=== PATIENT | female | born 1990 | race Caucasian/White ===

== ENCOUNTER 2022-03-14 11:21 | Outpatient (CLI) | payer SELFPAY | END 2022-03-14 11:22 | disposition home or self-care (01) | LOC: LBO 11:23 | PROVIDERS: Visit Provider Obstetrics & Gynecology | DX: O20.0 Threatened abortion (principal); Z67.91 Unspecified blood type, Rh negative | CPT/HCPCS: 36415; 86850; 86900; 86901 ==

== ENCOUNTER 2022-04-22 01:53 | Outpatient (CLI) | payer MEDICAID, SELFPAY ==
[2022-04-22 12:44] LABS: Panorama Kit Sent via Fed Ex
[2022-04-22 12:50] LABS: Abs Immature Grans 0.04 10^3/uL (0.0-0.06); Absolute Basophil Count 0.06 10^3/uL (0.0-0.2); Absolute Eosinophil Count 0.09 10^3/uL (0.0-0.7); Absolute Monocyte Count 0.59 10^3/uL (0.1-0.8); Basophils % 0.5; Eosinophils % 0.7; HCT 36.5 % (36.0-46.0); HGB 12.9 g/dL (11.2-15.7); Immature Grans % 0.3; Lymphocytes % 18.2; MCH 34.2 pg (27.0-33.0); MCHC 35.3 % (32.0-36.0); MCV 97 fL (80-95); Monocytes % 4.7; Neutrophils % 75.6; Platelet Count 215 10^3/uL (130-400); RBC 3.77 10^6/uL (3.93-5.22); RDW 11.2 % (11.7-14.6); WBC 12.55 10^3/uL (4.4-10.8)
[2022-04-22 12:51] LABS: Absolute Lymphocyte Count 2.28 10^3/uL (1.2-3.4); Absolute Neutrophil Count 9.49 10^3/uL (1.2-6.7)
[2022-04-25 09:46] LABS: Hepatitis C Ab w Rflx HCV PCR Negative (Negative)
[2022-04-25 09:53] LABS: HIV-1/2 Ag & Ab Screen Negative (Negative)
[2022-04-25 10:02] LABS: Hepatitis B Surface Ag Negative (Negative)
[2022-04-25 10:03] LABS: Varicella IgG Antibody Positive (See Note)
[2022-04-25 10:07] LABS: Rubella IgG Ab (UVM) Positive (See Note)
[2022-04-26 23:16] LABS: Syphilis IgG w/Reflex Nonreactive (Nonreactive)
[2022-05-06 17:45] LABS: Result Summary NEGATIVE; Specimen WB Whole Blood
== END 2022-04-22 01:54 | disposition home or self-care (01) ==
LOC: LBO 01:53
PROVIDERS: Visit Provider Advanced Practice Midwife
DX: Z34.91 Encounter for supervision of normal pregnancy, unspecified, first trimester (principal); Z3A.11 11 weeks gestation of pregnancy; Z36.89 Encounter for other specified antenatal screening
CPT/HCPCS: 36415; 81220; 81222; 86787; 86803; 86850; 86900; 86901; 87340; 87389; 85025; 86762; 86780

== ENCOUNTER 2022-05-20 13:50 | Outpatient (REF) | payer MEDICAID, SELFPAY ==
[2022-05-20 15:59] LABS: *AMPHETAMINES SCREEN URINE Negative (Negative); *BARBITURATES SCREEN URINE Negative (Negative); *BENZODIAZEPINES SCREEN URINE Negative (Negative); Cannabinoids THC Negative (Negative); Cocaine Screen,Urine Negative (Negative); METHADONE URINE SCREEN Negative (Negative); OPIATES URINE SCREEN Negative (Negative)
[2022-05-20 16:01] LABS: Tricyclic Antidepressants Negative (Negative)
[2022-05-21 14:15] LABS: Chlamydia Result Negative (Negative); GC Result Negative (Negative)
[2022-05-26 14:38] LABS: Buprenorphine Negative ng/mL (Cutoff: 5.0); Norbuprenorphine Negative ng/mL (Cutoff: 2.5)
== END 2022-05-20 13:51 | disposition home or self-care (01) ==
LOC: LBN 13:50
PROVIDERS: Advanced Practice Midwife; Visit Provider Advanced Practice Midwife
DX: Z34.91 Encounter for supervision of normal pregnancy, unspecified, first trimester (principal); Z11.3 Encounter for screening for infections with a predominantly sexual mode of transmission; Z3A.15 15 weeks gestation of pregnancy
CPT/HCPCS: 80307; 80348; 87491; 87591; 87086

== ENCOUNTER 2022-06-10 00:35 | Outpatient (CLI) | payer MEDICAID, SELFPAY ==
--- NOTE | 2022-06-10 07:45 | DI.US_ITS ---
Exam(s) US OB 2-3 TRIMESTER EXAM: US OB 2-3 TRIMESTERi CLINICAL HISTORY: 18-19 wk anatomy survey,z34.90. TECHNIQUE: Transabdominal obstetrical ultrasound was performed. COMPARISON: No exams were available for comparison FINDINGS: There is a single viable intrauterine gestation with cardiac activity identified-134 bpm. Amniotic fluid: There is a normal amount of amniotic fluid. Placental location: The placenta is anterior grade 1,with no evidence of placenta previa. ANATOMY: A 3 vessel umbilical cord is seen. A four-chamber cardiac view was obtained. Right and left ventricular outflow tracts were imaged. There are no obvious abnormalities of the spinal column evident. There is no obvious abnormal ity of the anterior abdominal wall. stomach and urinary bladder are identified and there is no evidence of hydronephrosis. No abnormalities of the upper lip region are identified. No evidence of choroid plexus cysts i n the brain. Dating parameters place this at approximately 18 weeks and 4 days gestational age. BPD measures 18 weeks and 0 days HC measures 18 weeks and 3 days AC measures 18 weeks and 3 days FL measures 19 weeks and 1 day Estimated weight is 254 gm-0 pounds, 9 ounces Fetus is at the 64th percentile on the Hadlock scale. IMPRESSION:: Single viable intrauterine gestation which is approximately 18 weeks and 4 days gestati onal age, implying an TRAN of November 07, 2022. There are no obvious anomalies evident on today's study. The placenta is anterior with no evidence of placenta previa. There is a normal amount of amniotic fluid. DATA REPOSITORY:
== END 2022-06-10 00:55 ==
LOC: DI 00:35
PROVIDERS: Visit Provider Advanced Practice Midwife
DX: Z34.90 Encounter for supervision of normal pregnancy, unspecified, unspecified trimester (principal)
CPT/HCPCS: 76805

== ENCOUNTER 2022-08-19 01:35 | Outpatient (CLI) | payer MEDICAID, SELFPAY ==
[2022-08-19 08:46] LABS: HCT 33.3 % (36.0-46.0); HGB 11.4 g/dL (11.2-15.7); MCH 35.1 pg (27.0-33.0); MCHC 34.2 % (32.0-36.0); MCV 103 fL (80-95); MPV 10.2 fL (8.0-11.0); Platelet Count 248 10^3/uL (130-400); RBC 3.25 10^6/uL (3.93-5.22); RDW 12.5 % (11.7-14.6); RDW-SD 47.3 fL; WBC 10.65 10^3/uL (4.4-10.8)
[2022-08-19 09:00] LABS: Glucose,1 Hr (Glucola) 134 mg/dL (80-140)
== END 2022-08-19 01:36 | disposition home or self-care (01) ==
LOC: LBO 01:35
PROVIDERS: Visit Provider Advanced Practice Midwife
DX: Z34.93 Encounter for supervision of normal pregnancy, unspecified, third trimester (principal)
CPT/HCPCS: 36415; 82950; 85027

== ENCOUNTER 2022-08-19 07:37 | Outpatient (CLI) | payer MEDICAID, SELFPAY ==
--- NOTE | 2022-08-19 06:15 | DI.US_ITS ---
Exam(s) US OB JA WEIGHT EXAM: US OB JA WEIGHT CLINICAL HISTORY: growth and fluid volume,smoker,z34.90. TECHNIQUE: Transabdominal obstetrical ultrasound performed. COMPARISON: US US OB 2-3 TRIMESTER from 06/10/2022 FINDINGS:: Number of fetuses: One. position: Vertex. Placental location: Anterior no evidence of previa. BIOMETRIC DATA: BPD: 69mm = 28+ 0 weeks HC: 257mm = 28+ weeks AC: 250mm = 29+ 0 weeks FL: 54 mm = 28+ 5 weeks EFW: 1280 Gms = 50% Composite Age: 28+ 3 weeks EDC: 08 November 2022 Heart Rate: 130BPM Amniotic fluid index: 13 cm. Amount of fluid is visually within normal limits. IMPRESSION: size and weight are within the expected range. DATA REPOSITORY:
[2022-11-08 23:53] VITALS: BP 120/83; PULSE 112; RESP 18; TEMP 36.8
[2022-11-09] VITALS (55 sets, daily range): BP systolic 85–171; BP diastolic 48–94; PULSE 88–129; O2SAT 96–100
== END 2022-11-09 07:38 | disposition home or self-care (01) ==
LOC: DI 11-09 07:37
PROVIDERS: Visit Provider Advanced Practice Midwife
DX: Z34.93 Encounter for supervision of normal pregnancy, unspecified, third trimester
CPT/HCPCS: 76816

== ENCOUNTER 2022-09-05 12:41 | Outpatient (REF) | payer MEDICAID, SELFPAY ==
[2022-09-05 14:16] LABS: *AMPHETAMINES SCREEN URINE Negative (Negative); *BARBITURATES SCREEN URINE Negative (Negative); *BENZODIAZEPINES SCREEN URINE Negative (Negative); Cannabinoids THC Negative (Negative); Cocaine Screen,Urine Negative (Negative); METHADONE URINE SCREEN Negative (Negative); OPIATES URINE SCREEN Negative (Negative)
[2022-09-05 14:20] LABS: Tricyclic Antidepressants Negative (Negative)
== END 2022-09-05 12:42 | disposition home or self-care (01) ==
LOC: LBN 12:41
PROVIDERS: Visit Provider Advanced Practice Midwife
DX: F12.90 Cannabis use, unspecified, uncomplicated (principal); O99.320 Drug use complicating pregnancy, unspecified trimester; Z3A.00 Weeks of gestation of pregnancy not specified
CPT/HCPCS: 80307

== ENCOUNTER 2022-09-09 12:48 | Outpatient (CLI) | payer MEDICAID, SELFPAY ==
[2022-09-09 12:59] VITALS: BP 119/75; PULSE 111; TEMP 36.6
--- NOTE | 2022-09-09 13:48 | W.OBNST ---
Date of service: 09/09/22 Time of Service: 13:48 NST Evaluation Reason for NST Reasons for Nonstress Test: DECREASED MOVEMENT Gestational Age Gestational Age in Weeks and Days: 31 Weeks and 3Days Test and Monitor Explained Test/Monitor Explained: Test Explained, Monitor Explained and Patient Verbalized Understanding Vital Signs Blood Pressure: 119/75 Pulse: 111 Temperature: 97.9 F Urine Results Urine Protein: Negative Urine Ketones: Negative Urine Glucose: Negative Urine Blood: Negative NST Information Date on Monitor: 09/09/22 Time on Monitor: 13:01 Date off Monitor: 09/09/22 Time off Monitor: 13:31 Total Time on Monitor: 30 NST Interventions: PO Hydration NST Evaluation Patient States Movement: Decreased FHR Baseline: 120 Variability: Moderate 6-25 bpm Accelerations: 15x15 Decelerations: None NST Results: Reactive Note Ultrasound Done: N/A. NST Note Note: Pt came in from work, needed to eat, was dehydrated. At discharge was feeling better, appreciated FM, ate sandwich and had juice. NST Reviewed and Verified by: Pretty Rmoo
[2022-09-09 13:49] VITALS: BP 119/75; PULSE 111; TEMP 36.6
== END 2022-09-09 13:52 | disposition home or self-care (01) ==
LOC: BCD 12:52 → OBS 12:53
PROVIDERS: Visit Provider Advanced Practice Midwife
DX: O36.8131 Decreased fetal movements, third trimester, fetus 1 (principal); Z3A.31 31 weeks gestation of pregnancy
CPT/HCPCS: 59025

== ENCOUNTER 2022-09-21 10:37 | Outpatient (CLI) | payer MEDICAID, SELFPAY ==
[2022-09-21] VITALS (10 sets, daily range): BP systolic 114; BP diastolic 79; PULSE 88–101; TEMP 36.4; O2SAT 100
--- NOTE | 2022-09-21 13:42 | W.OBNST ---
Date of service: 09/21/22 Time of Service: 13:42 NST Evaluation Reason for NST Reasons for Nonstress Test: LABOR Gestational Age Gestational Age in Weeks and Days: 33 Weeks and 1Days Test and Monitor Explained Test/Monitor Explained: Test Explained, Monitor Explained and Patient Verbalized Understanding Vital Signs Blood Pressure: 114/79 Pulse: 101 Temperature: 97.5 F Urine Results Urine Protein: Negative Urine Ketones: Positive Urine Glucose: Negative Urine Blood: Negative NST Information Date on Monitor: 09/21/22 Time on Monitor: 10:45 Date off Monitor: 09/21/22 Time off Monitor: 11:50 Total Time on Monitor: 65 NST Interventions: PO Hydration and Notify Provider Contraction Frequency: Q4-6 NST Evaluation Patient States Movement: Present FHR Baseline: 155 Variability: Moderate 6-25 bpm Accelerations: 15x15 and Prolonged Decelerations: None NST Results: Reactive Note Ultrasound Done: N/A. NST Note Note: Michelle came in for routine OB visit today and she reported uterine contractions. She had not had anything to eat prior to her visit and she reports that she has been very busy at work and with home chores prior to her visit. Uterine irritability noted which was mild strength. The contractions decreased in frequency after drinking 5 glasses of water and eating lunch. Urine was neg but did show a trace of ketones. White, frothy discharge was noted upon speculum exam and vaginal pathogen screen and fibronectin and GBS sent. She reports a history of BV. Cervix is soft and closed and vertex is low. I reviewed signs of labor. She will start metronidazole PO pending vaginal pathogen screen results. Rest and pelvic rest recommended and adequate fluid and food intake. NST Reviewed and Verified by: Aspen Amezcua
[2022-09-21 14:05] LABS: Fetal Fibronectin Negative (Negative)
== END 2022-09-21 12:50 | disposition home or self-care (01) ==
LOC: BCD 10:49 → OBS 10:57
PROVIDERS: Visit Provider Advanced Practice Midwife
DX: O60.03 Preterm labor without delivery, third trimester (principal); Z3A.33 33 weeks gestation of pregnancy
CPT/HCPCS: 59025; 82731; 87081; 87480; 87510; 87660

== ENCOUNTER 2022-10-03 11:28 | Outpatient (CLI) | payer MEDICAID, SELFPAY ==
[2022-10-03 11:34] VITALS: BP 112/76; PULSE 109; TEMP 36.7
[2022-10-03 11:36] VITALS: BP 112/76; PULSE 109
--- NOTE | 2022-10-03 12:11 | W.OBNST ---
Date of service: 10/03/22 Time of Service: 12:11 NST Evaluation Reason for NST Reasons for Nonstress Test: OTHER, SEE COMMENT Reason for NST Other: increased fhr in office Gestational Age Gestational Age in Weeks and Days: 34 Weeks and 6Days Test and Monitor Explained Test/Monitor Explained: Test Explained, Monitor Explained and Patient Verbalized Understanding Vital Signs Blood Pressure: 112/76 Pulse: 109 Temperature: 98.1 F Urine Results Urine Protein: Negative Urine Ketones: Negative Urine Glucose: Negative Urine Blood: Negative NST Information Date on Monitor: 10/03/22 Time on Monitor: 11:15 Date off Monitor: 10/03/22 Time off Monitor: 12:06 Total Time on Monitor: 51 NST Interventions: PO Hydration NST Evaluation Patient States Movement: Present FHR Baseline: 160 Variability: Moderate 6-25 bpm Accelerations: 15x15 Decelerations: None NST Results: Reactive Note Ultrasound Done: N/A. NST Note Note: NST is reactive and reassuring. FHR baseline decreased to 150-160 once PO hydration and rest occurred. Will keep next office appointment as scheduled. MARISA NST Reviewed and Verified by: Aspen [place]
[2022-10-03 12:12] VITALS: BP 112/76; PULSE 109; TEMP 36.7
== END 2022-10-03 12:09 | disposition home or self-care (01) ==
LOC: BCD 11:29 → OBS 11:32
PROVIDERS: Visit Provider Advanced Practice Midwife
DX: O36.8331 Maternal care for abnormalities of the fetal heart rate or rhythm, third trimester, fetus 1 (principal); Z3A.34 34 weeks gestation of pregnancy
CPT/HCPCS: 59025

== ENCOUNTER 2022-10-13 11:46 | Outpatient (REF) | payer MEDICAID, SELFPAY ==
[2022-10-13 18:20] LABS: *AMPHETAMINES SCREEN URINE Negative (Negative); *BARBITURATES SCREEN URINE Negative (Negative); *BENZODIAZEPINES SCREEN URINE Negative (Negative); Cannabinoids THC Negative (Negative); Cocaine Screen,Urine Negative (Negative); METHADONE URINE SCREEN Negative (Negative); OPIATES URINE SCREEN Negative (Negative)
[2022-10-13 18:22] LABS: Tricyclic Antidepressants Negative (Negative)
[2022-10-22 11:29] LABS: Buprenorphine Negative ng/mL (Cutoff: 5.0)
== END 2022-10-13 11:47 | disposition home or self-care (01) ==
LOC: LBN 11:46
PROVIDERS: Visit Provider Advanced Practice Midwife
DX: Z34.93 Encounter for supervision of normal pregnancy, unspecified, third trimester (principal); Z36.85 Encounter for antenatal screening for Streptococcus B; Z3A.36 36 weeks gestation of pregnancy
CPT/HCPCS: 80307; 80348; 87081

== ENCOUNTER 2022-10-26 10:44 | Outpatient (REF) | payer MEDICAID, SELFPAY | END 2022-10-26 10:45 | disposition home or self-care (01) | LOC: LBN 10:44 | PROVIDERS: Visit Provider Advanced Practice Midwife | DX: O26.893 Other specified pregnancy related conditions, third trimester (principal); N89.8 Other specified noninflammatory disorders of vagina; Z3A.38 38 weeks gestation of pregnancy | CPT/HCPCS: 87480; 87510; 87660 ==

== ENCOUNTER 2022-11-09 02:36 | Inpatient (IN) | payer MEDICAID, SELFPAY ==
[2022-11-08 23:53] VITALS: BP 120/83; PULSE 112; RESP 18; TEMP 36.8
[2022-11-09] VITALS (79 sets, daily range): BP systolic 85–171; BP diastolic 48–101; PULSE 88–129; RESP 18; TEMP 36.5–36.9; O2SAT 96–100; BMI 23.9
--- NOTE | 2022-11-09 00:28 | HPE_ITS ---
Date of service: 11/09/22 Time of Service: 00:28 Assessment and Plan Assessment and plan (1) Prolonged latent phase of labor: Status: Acute Assessment and plan: 1. Observation, support comfort measures for labor 2. Reassess for cervical change and admit as indicated 3. Will await active labor for IV access and or epidural, using ball and shower as desired. MARISA OB-HPI Labor/Delivery History of Present Illness Reason for Visit: R/O LABOR Chief Complaint: Uterine Contractions. TRAN Calculator Estimated Delivery Date Method Current WG Current Estimate 11/08/22 Ultrasound #1 40w 1d Other Estimates 11/04/22 LMP (Certain) 40w 5d Comments: Michelle presents with contractions that have been happening most of the day but in the past hour have become closer and stronger. She is working well with contractions and when in active labor may want epidural. Denies LOF. Has had some bloody mucous. Baby has been active. MARISA History of Present Expected Delivery Route/Plan - DIDIER FOB/nida Pan (first child) Diane Florentino Desires epidural GBS negative Specific Issues/Plan 1. Has stopped smoking, uses nicotine pouches 4 mg 2-3x/day. 2. Likes caffeine but limits to 200 mg daily (Dr. Quarles & Barbara Velez) 3. Quit using MJ (for nausea) since 10 wks, expect THC+, repeat at 28 wks=negative 4. Hx anxiety w/caffeine & nicotine abuse. associated HTN last yr, stopped propanolol prior to 4a. Advised to start low dose ASA (nullip & hx HTN), pt declines 5. Pt declines [facility] allergy referral 6. Panorama results WNL, CF carrier screen negative 7. anatomy survey shows left ventricular IEF, considered benign with nml cfDNA results. 8. EFW/JA @ 28 wks due to substance use, EFW in 50th%, JA=13 9. Contractions at 33 wks - BV+, Rx'ed metronidazole Assessment: History Reviewed & Current Review of Systems All systems reviewed & are unremarkable except as noted in HPI and below PFSH All Active Problems (Updated 11/09/22 @ 00:35 by Aspen Lake CNM) Prolonged latent phase of labor (Acute) Marijuana use (Acute) Caffeine dependence (Acute) Nicotine dependence (Acute) Anxiety (Chronic) (Acute) Medical History Threatened miscarriage Social History Smoking/Tobacco Use Status: Former Tobacco Use Smoking risk assessment performed?: Yes History History 2 Para 0 Hx # Term Pregnancies 0 Multiple births 0 Hx # Pregnancies 0 Ectopic pregnancies 0 AB induced 1 Hx Number of Living Children 0 AB spontaneous 0 Meds Allergies and Home Medications Allergies Allergy/AdvReac Type Severity Reaction Status Date / Time Sulfa (Sulfonamide Allergy Skin Rash Verified 11/09/22 00:34 Antibiotics) Penicillins AdvReac Mild Skin Rash Verified 11/09/22 00:34 lavender soap AdvReac Intermediate Hives Uncoded 11/09/22 00:34 Home Medications Medication Instructions Recorded Confirmed Type prenat.vits,chris,[id number] 1 tab PO DAILY 03/14/22 11/08/22 History fluticasone propionate 50 1 spray intranasal DAILY 05/20/22 11/08/22 History mcg/actuation nasal spray,suspension (Flonase Allergy Relief) acetaminophen 500 mg capsule 500 mg PO Q6H PRN 06/10/22 11/08/22 History albuterol sulfate 90 mcg/actuation 2 puff inhalation QID PRN 06/10/22 11/08/22 History aerosol inhaler calcium carbonate 200 mg calcium 200 mg PO BID PRN 10/20/22 11/08/22 History (500 mg) chewable tablet (Tums) Exam Constitutional Constitutional: mild distress (due to uterine contractions) Detailed Labor and Delivery Exam Dilation: 2 Effacement (%): 90 station: -2 Cervix position: posterior Consistency: soft Corona Score: Cervical Points Exam 0 1 2 3 Dilation Closed 1-2cm 3-4 cm 5-6cm Effacement 0-30% 40-50% 60-70% 80% Consistency Firm Medium Soft Station -3 -2 -1,0 +1,+2 Position Posterior Mid Anterior CORONA Score(Cervical Ripeness Score): 7 Amniotic Membrane Status: Intact Contraction Frequency(min): 2-4 Contraction Duration(sec): 50-90 Contraction Intensity: Moderate Fetus A Heart Rate Baseline: 125 Monitor Accelerations: 15 X 15 Variability: Moderate (6-25 BPM) Est. Weight: 6 lb 8 oz HEENT Exam HEENT Exam: Normal Neck Exam Neck Exam: Normal (visual exam) Chest/Brest/Axilla Exam Chest Exam: Normal Respiratory Exam Respiratory Exam: Normal Cardiovascular Exam Cardiovascular Exam: Normal Abdominal Exam Abdominal Exam: Normal (gravid uterus, size slightly less than dates) Rectal Exam Rectal Exam: Not Done Exam Exam: Normal (no blood noted with exam) Extremities Exam Extremities Exam: Normal Back/Spine/Pelvis Exam Back Exam: Not Done Pelvis Adequate: Yes Skin Exam Skin Exam: Normal Neurological Exam Neurological Exam: Normal Psychiatric Exam Psychiatric Exam: Normal Results Results Group Beta Strep: Negative Blood Type: O+ Rubella Status: Immune Varicella Immunity: Immune Lab Results: Hep B and C neg, HIV neg, Syphilis neg, CF neg, cfDNA low risk female gender Risk Assessment Risk for Shoulder Dystocia Historical/Initial OB: NEGATIVE FOR: Pelvic Abnormality, Pre- BMI>30, Previous Shoulder Dystocia or Previous Macrosomia 40 Weeks: NEGATIVE FOR: EFW> 4500 gms, Maternal Weight Gain >40lb or Post Dates Delivery Plan @ 40 wks: NVD planned Risk for Pre-Eclampsia Date Initiated/Initials: 04/22/22, discussed start @ 12 wks for low-mod risk level, pt declines. J Yes, if one or more: NEGATIVE FOR: Hx Pre-E/Gest HTN, Chronic HTN, Multiple Gestation, Pre-gestational DM, Renal Disease, Systemic Lupus or APA Syndrome Yes, if 2 or more: POSITIVE FOR: Nulliparity; NEGATIVE FOR: Age>= 35 yrs, >10yr btwn pregnancies, BMI>30, ethinicty, Mother/Sister w/ Pre-E or Previous IUGR Risk for Post- Hemorrhage Initial: NEGATIVE FOR: Multiple Gestation, Previous PPH, Known Clotting Deficiency, Grand Multiparity or Anticoagulation 40 Weeks: NEGATIVE FOR: Anemia, hgb<10, Low platelets (thrombocytopenia), Gestation HTN or Pre-E, Polyhydraminios or EFW>4500gms Counseled re: Active Management: Yes Date/Initials: 11/09/22 KH Risks Reviewed Risks Reviewed Upon Admission: Yes
--- NOTE | 2022-11-09 02:02 | W.PM.OBNL1 ---
Date of service: 11/09/22 Time of Service: 02:02 Pelvic Exam Dilation: 3 Effacement (%): 90 station: -2 Cervix Position: posterior Consistency: soft Contractions Monitor Mode: External Contraction Frequency(min): irregular Contraction Duration(sec): irregular Intensity: Mild Fetus A Monitor: External (US) Heart Rate Baseline: 120 Variability: Moderate (6-25 BPM) Categories: Category I Accelerations: 15 X 15 Decelerations: None Amniotic Membrane Status: Intact Assessment and Plan Assessment and plan (1) Prolonged latent phase of labor: Status: Acute Assessment and plan: 1. therapeutic rest at hospital vs behavioral methods of management of prodromal labor either as observation patient or with discharge to home reviewed. 2. Michelle will consider options and let us know what sounds best to her at this point in her prodromal labor. 3. FHR tracing is reactive and reassuring, [place] Objective Temp 98.2 F 11/09/22 00:28 Subjective Interval history since last seen: Michelle has had a period of less frequent and less intense contractions. VE done with minimal progress /-2 posterior and soft. I reviewed options for rest such as morphine and phenergan or Nubain, behavioral methods of relaxation and shower, tub etc. or discharge to home to return when contractions are every 4 minutes or less lasting 1 minute with increased intensity for 1 hour or more. She and her partner, Kevon, will consider these options and then let us know their choice. I reviewed that induction or augmentation of labor is not possible at this time due to unit census and due to her healthy, normal . MARISA
--- NOTE | 2022-11-09 02:35 | W.OBNST ---
Date of service: 11/09/22 Time of Service: 00:15 NST Evaluation Reason for NST Reasons for Nonstress Test: OTHER, SEE COMMENT Reason for NST Other: Rule out labor Gestational Age Gestational Age in Weeks and Days: 40 Weeks and 1Days Test and Monitor Explained Test/Monitor Explained: Test Explained Urine Results Urine Protein: Negative Urine Ketones: Negative Urine Glucose: Negative Urine Blood: Negative NST Information Date on Monitor: 11/08/22 Time on Monitor: 23:45 Date off Monitor: 11/09/22 Time off Monitor: 00:15 Total Time on Monitor: 30 NST Interventions: None NST Evaluation Patient States Movement: Present FHR Baseline: 145 Variability: Moderate 6-25 bpm Accelerations: 15x15 Decelerations: None Note Ultrasound Done: N/A. NST Note Note: NST is reactive and reassuring. Patient is in prodromal labor. will place on observation and reassess prn. MARISA NST Reviewed and Verified by: Aspen [place]
--- NOTE | 2022-11-09 07:01 | PGE_ITS ---
Date of service: 11/09/22 Time of Service: 07:02 Pelvic Exam Dilation: 5 Effacement (%): 100 station: -1 Position: SURJIT Cervix Position: mid Consistency: soft Contractions Monitor Mode: Palpation Contraction Frequency(min): 2-4 Contraction Duration(sec): 60 Intensity: Moderate/Strong Fetus A Assessment Note: currently off monitor, will be placed on monitor during admission. FHT's have been WNL. MARISA Assessment and Plan Assessment and plan (1) Normal labor: Status: Acute Assessment and plan: 1. Update admission to inpatient. H&P is current 2. CBC and type and screen 3. IV access and epidural when able to obtain 4 will give report to Pretty Romo CNM at 0800 [facility] MARISA Objective Temp Pulse Resp BP 98.2 F 110 H 18 114/68 11/09/22 05:47 11/09/22 05:47 11/09/22 05:47 11/09/22 05:47 Vital Signs Reviewed: Yes Subjective Interval history since last seen: Admitted from OB Observation at this time as patient is 5cm/100%/-1 with bulging membranes and + show. Working well with contractions using nitrous but would p refer epidural once admission is complete and IV is in place. MARISA
[2022-11-09 07:35] LABS: HCT 39.5 % (36.0-46.0); HGB 13.5 g/dL (11.2-15.7); MCH 33.7 pg (27.0-33.0); MCHC 34.2 % (32.0-36.0); MCV 99 fL (80-95); MPV 10.8 fL (8.0-11.0); Platelet Count 247 10^3/uL (130-400); RBC 4.01 10^6/uL (3.93-5.22); RDW 12.8 % (11.7-14.6); RDW-SD 45.7 fL; WBC 18.02 10^3/uL (4.4-10.8)
--- NOTE | 2022-11-09 07:42 | W.ANESPRE ---
General Info Date of Service Date Performed: 11/09/22 Height: 5 ft 3 in Weight: 61.235 kg Body Mass Index (BMI): 23.9 Meds Allergies and Home Medications Allergies Allergy/AdvReac Type Severity Reaction Status Date / Time Sulfa (Sulfonamide Allergy Skin Rash Verified 11/09/22 00:34 Antibiotics) Penicillins AdvReac Mild Skin Rash Verified 11/09/22 00:34 lavender soap AdvReac Intermediate Hives Uncoded 11/09/22 00:34 Home Medication Medication Instructions Recorded prenat.vits,chris,[id number] 1 tab PO DAILY 03/14/22 fluticasone propionate 50 1 spray intranasal DAILY 05/20/22 mcg/actuation nasal spray,suspension (Flonase Allergy Relief) acetaminophen 500 mg capsule 500 mg PO Q6H PRN 06/10/22 albuterol sulfate 90 mcg/actuation 2 puff inhalation QID PRN 06/10/22 aerosol inhaler calcium carbonate 200 mg calcium 200 mg PO BID PRN 10/20/22 (500 mg) chewable tablet (Tums) Current Visit Medications: Current Medications Generic Name Dose Route Start Last Admin Trade Name Freq PRN Reason Stop Dose Admin Acetaminophen 500 mg 11/09/22 07:07 Acetaminophen 500 Mg Tab PO Q6H PRN PRN Sodium Chloride 500 mls @ 0 mls/hr 11/09/22 06:59 Saline 500ml Bag IV PRN PRN As Directed IV Miscellaneous Supplies 1 each 11/09/22 07:00 Iv Access IV DIRECTED BRANDON Sodium Chloride 0 ml 11/09/22 06:59 Normal Saline Flush 10 Ml Syr IVP PRN PRN PFSH Active Problems Active Problems: Problem Status Onset Code Normal labor O80, Z37.9 Marijuana use F12.90 Caffeine dependence F15.20 Nicotine dependence F17.200 Anxiety F41.9 Z34.90 Medical History Medical History (Updated 11/09/22 @ 07:04 by Aspen Lake CNM) Prolonged latent phase of labor Threatened miscarriage Tobacco Smoking/Tobacco Use Status: Former Tobacco Use Prental History History 2 Para 0 Hx # Term Pregnancies 0 Multiple births 0 Hx # Pregnancies 0 Ectopic pregnancies 0 AB induced 1 Hx Number of Living Children 0 AB spontaneous 0 Vital Signs and Lab Results Vital Signs Most Recent Vital Signs in EMR: Most Recent Vital Signs Temp Pulse Resp BP 36.8 C 110 H 18 114/68 11/09/22 05:47 11/09/22 05:47 11/09/22 05:47 11/09/22 05:47 Lab Results 11/09/22 07:25 Blood Type / Crossmatch: No Data to Display Complete Blood Count: White Blood Count 18.02 10^3/uL (4.4-10.8) H 11/09/22 07:25 Red Blood Count 4.01 10^6/uL (3.93-5.22) 11/09/22 07:25 Hemoglobin 13.5 g/dL (11.2-15.7) 11/09/22 07:25 Hematocrit 39.5 % (36.0-46.0) 11/09/22 07:25 Platelet Count 247 10^3/uL (130-400) 11/09/22 07:25 Complete Metabolic Panel: No Data to Display Liver Function Panel: No Data to Display Coagulation Panel: No Data to Display Cardiac Panel: No Data to Display Arterial Blood Gas: No Data to Display Venous Blood Gas: No Data to Display Pancreas Panel: No Data to Display Thyroid Panel: No Data to Display Infectious Disease: No Data to Display Blood Cultures: No Data to Display Toxicology Panel: Urine Amphetamines Screen Negative (Negative) 10/13/22 11:20 Urine Benzodiazepines Screen Negative (Negative) 10/13/22 11:20 Urine Barbiturates Screen Negative (Negative) 10/13/22 11:20 Urine Cocaine Screen Negative (Negative) 10/13/22 11:20 Urine Methadone Screen Negative (Negative) 10/13/22 11:20 Urine Opiates Screen Negative (Negative) 10/13/22 11:20 Ur Tricyclic Antidepressants Screen Negative (Negative) 10/13/22 11:20 Ur Tetrahydrocannabinol (THC) Scrn Negative (Negative) 10/13/22 11:20 Panel: No Data to Display Anesthesia Assessment and Plan Anesthesia History Personal History: No History of Anesthesia Complications Family History: No Family History of Anesthesia Complications Exercise Tolerance Exercise Tolerance: Metabolic Equivalents>4 Pertinent Negatives Pertinent Negatives: No Major Cardiovascular Symptoms or Complaints and No Major Pulmonary Symptoms or Complaints Cardiac & Pulmonary Exam Cardiac Exam: Normal S1/S2 Heart Sounds Pulmonary Exam: Clear Bilateral Breath Sounds Implantable Cardiac Device Does patient have a Pacemaker or an ICD?: No Airway Exam Known Difficult Airway: No Mallampati Class: 2 Mouth Opening: Normal (> 3cm) Thyromental Distance: Greater than 3 cm Neck Range of Motion: Full ROM Neck Circumference: Normal Teeth Condition: Normal Dentition ASA Classification ASA Score: ASA 2 Emergency Case?: No NPO Status NPO Status: Full Stomach Status Status: Confirmed Anesthesia Plan Resuscitation Status: Full Code Anesthesia Technique: Epidural Anesthesia Airway Planned: Natural Airway Pain Management: Epidural Monitors Used: Standard Monitors Preoperative Comments:: Significant GERD, desires epidural, discussed risks, benefits, and alternatives
[2022-11-09] MEDS: Lactated Ringers 500 ML IV (08:54)
[2022-11-09] MEDS: FentaNYL/ROPIvacaine 2 mcg/ml and 0.1% 200 ML CADD Cassette EP (08:54)
--- NOTE | 2022-11-09 10:39 | ANES.NEUR_ITS ---
Epidural/Spinal Catheter Date Performed: 11/09/22 Procedure Start: 08:16 Procedure Stop: 09:35 Requesting Provider: [place] Procedure Location: Obstetrics Reason Performed: Labor Epidural Standard Monitors Applied: Blood Pressure, SpO2 and See EMR for corresponding vital signs Patient Position: Sitting Sedation Given (Indicate Dose Given): No Sedation given Patient Mental Status: Awake Sterility: Hand Hygiene, Surgical Cap, Surgical Mask, Sterile Gloves, Sterile Drape/Sheet and Chlorhexidine Procedure Location: L2-L3 Interspace Epidural Needle: Tuohy 18 Gauge Needle Length: 3.5 Inch Needle Approach: Midline Epidural Procedure: Skin Prepped, Sterile Drape Placed, 1% Lidocaine to skin and subcutaneous tissue with 25G needle, Tuohy Needle placed, SARAH to Saline Used, Epidural Catheter Placed, Negative Heme, Negative CSF Flow and Tuohy Needle Removed Catheter Placed?: Catheter Placed Test Dose (Indicate Dose Given): 3ml 1.5% Lidocaine with 1:200K Epinephrine Given and Negative Test Dose Loss of Resistance Depth (cm): 7 Catheter depth at skin (cm): 14 (13.5 (unable to put 13.5 in document section)) Dressing: [place] Dressing Placed, Mastisol Used and Dressing reinforced with Tape Epidural Provider Bolus (Indicate Dose Given): Total bolus dose given in 3-5 ml divided doses (3mL) and Total Ropivacaine 0.1% with Fentanyl 2mcg/ml Given from pump. (ml) Dose:: 3mL Additives (Indicate Dose Given ): None Infusion Medication: Medication Infusion Began Medication Infusion: Ropivacaine 0.1% with Fentanyl 2mcg/ml Maintenance Infusion Rate (ml/hour): 10 PCEA Bolus Dose (ml): 5 Block Level: Other Paresthesia: Left Paresthesia Duration: Transient Ultrasound: Not Used Number of Attempts (See previous attempts in note section): 3 Procedure Tolerated: Complications Encountered Procedure Outcome: Unsuccessful Procedure Comment:: Time out completed at bedside with patient's support, Max present for preoperative assessment as well as consent process. First interspace L3/L4 local anesthetic to skin and patient did not tolerate advancement of epidural needle. Plan to move up one interspace and additional lidocaine utilized. Patient had a difficult time with sitting still and required several intermittent breaks during the procedure to wait for a contraction and to re-center herself. Verbal reassurance was provided and ultimately patient tolerated procedure well. During second attempt, left sided persistent paresthesia noted with first catheter placement and decision made to restart procedure with new kit. During third attempt, SARAH to saline at 7cm, negative test dose, 3 mL bolus off pump administered (see reeling machine setup operator)--patient reported right sided ptosis and altered ipsilateral arm sensory function a few minutes after initial bolus dose--the sensory block was at the intermammillary region. Epidural pump immediately stopped, head of bed elevated, O2 provided and requested OB provider present at bedside. Patient had equal smile, bilaterally strong hand public interviewer, and stable vital signs after 5mg of ephedrine IV administered. A second anesthesia provider was requested. Patient's vital signs were reassuring and no shortness of breath reported from patient after vasopressor given. See vital signs per reeling machine setup operator. Patient provided verbal reassurance and discussed potential of a subdural migration of LA or catheter placement. Catheter was withdrawn 2cm and re-taped and pump remained off. Patient was hopeful to use epidural for delivery, but wanted to wait for symptoms to resolve. Patient checked in on again shortly after 10am and ptosis had significantly improved and arm sensation was returning. Decision made, along with patient's consent, to remove epidural catheter and utilize different pain modalities for labor to include an intrathecal, which the patient declined. Patient and partner verbalize understanding and agree to plan. Performed By: Zo Sharma
--- NOTE | 2022-11-09 10:47 | W.PM.OBNL1 ---
Date of service: 11/09/22 Time of Service: 10:30 Informed Consent Informed Consent: Other (consents to AROM) Pelvic Exam Dilation: 6.5 Effacement (%): 100 station: -2 Consistency: soft Contractions Monitor Mode: External Contraction Frequency(min): q2-4 Intensity: Moderate/Strong Fetus A Monitor: External (US) Heart Rate Baseline: 135 Presentation: Cephalic Variability: Moderate (6-25 BPM) Categories: Category I Accelerations: Present Amniotic Membrane Status: Ruptured Rupture Method: Artifical Amniotic Fluid: Meconium Amount: moderate Date of Membrane Rupture: 11/09/22 Time of Membrane Rupture: 10:17 Assessment and Plan Assessment and plan (1) Normal labor: Status: Acute Assessment and plan: A: Hand off from [place] 32 yo G1 @ 40+1 wks, spont onset labor Has progressed to active labor Unsuccessful epidural attempt Category 1 tracing, meconium fluid P: AROM with pt consent, Encourage movement and activity Comfort measures as needed, IV analgesia available Maintain IV access site Anticipate Objective Vital Signs Reviewed: Yes Objective Narrative Objective Narrative: Pt requested epidural anesthesia early this morning DIRECTOR OF SAFETY AND SECURITY placed catheter, subsequent hypotensive episode and 4 minute FHT decel BP & FHT recovered with ephedrine, IVF bolus and maternal lateral positioning Epidural infusion discontinued, pt declined re-attempt, catheter removed by DIRECTOR OF SAFETY AND SECURITY Pt worried about how to manage labor pain, appears to be coping well at this time Will continue nitrous inhalant use, consider IV fentanyl if pt requests FHT's are category 1, pt is normotensive and afebrile FOB bedside for support Subjective Interval history since last seen: Pt reports high anxiety, nitrous is very helpful, epidural not an option due to right eye drooping and hypotension, feeling vaginal pressure with some contractions
[2022-11-09] MEDS: Acetaminophen 500 MG TAB PO (11:02)
--- NOTE | 2022-11-09 12:21 | W.PM.OBNL1 ---
Date of service: 11/09/22 Time of Service: 12:21 Pelvic Exam Dilation: 8 Effacement (%): 100 (slight edema to cervix) station: -1 Contractions Monitor Mode: Palpation Contraction Frequency(min): 2-3 Contraction Duration(sec): 80-90 Intensity: Strong Fetus A Monitor: Doppler Heart Rate Baseline: 140 FHR Rhythm: Regular Characteristics: Normal Decelerations: None Amniotic Membrane Status: Ruptured Assessment and Plan Assessment and plan (1) Normal labor: Status: Acute Assessment and plan: A: Transition with descent Pt requesting pain medication P: Fentanyl 25 mcg IVP LLP on bed with PNball Anticipate Objective Vital Signs Reviewed: Yes Objective Narrative Objective Narrative: Pt coping well wth contractions Moving around room, H&K on floor mat, using CUB Subjective Interval history since last seen: Contractions have increased, feeling occasional urges to bear down at peak of contractions, requesting pain medication
[2022-11-09] MEDS: fentaNYL 100 MCG/2 ML VIAL 25 MCG IVP (12:29)
[2022-11-09] MEDS: Oxytocin 10 UNITS/ML VIAL IM (14:33)
[2022-11-09] MEDS: Oxytocin/Normal Saline 30 UNIT/500 ML BAG 95 UNITS IV (14:48)
--- NOTE | 2022-11-09 15:26 | OBVDS_ITS ---
Date of service: 11/09/22 Time of Service: 15:26 OB Labor/ Delivery Information Baby A Delivery Delivery Method: Spontaneaous Presentation: Cephalic Cephalic Position: Vertex Vertex Position: Right Occipital Anterior Breech Position: N/A Cord Description-Baby A: 3 Vessels, Nuchal Cord (loose x2) and Reduced (overhead x2 prior to delivery of shoulders) Amniotic Fluid: Meconium Estimated Blood Loss: QBL 300 Delivery Outcome: Liveborn Transferred: Remains with Mother Note: Pt relaxed well after fentanyl 25 mcg IVP given, 1 hour later she was found to be fully dilated with vtx @ +3, 2nd stage huddle completed, FHT 120's with doptone. Excellent maternal efforts resulted in of a vigorous female infant over attempted intact perineum, loose nuchal cord x2 reduced overhead, shoulders came easily and infant placed in mother's arms immediately. IV site no longer patent, pitocin 10 units given IM, cord clamped and cut by FOB, cord blood collected and [place] placenta delivered intact with 3VC. New IV access established and pitocin bolus infusion given per routine procedure, fundus firm below umbilicus. 2nd degree perineal laceration repaired under topical anesthesia with 20% benzocaine spray and 3.0 Vicryl, baby remaining S2S and , strong family bonding observed, apgars 8/9, QBL 300, weight 2845 gms. Providers Nurse Control Systems Drafting Officer: Pretty Romo Nurse: Maye Rodas Nurse: Kelly Watson Labor/Delivery Information Steroids Given: None Reason Steroids Not Administered: N/A Group Beta Strep: Negative Antibiotics Administered: No Rubella Status: Immune Blood Type: O+ Varicella Immunity: Immune Shoulder Dystocia: No Stages of Labor Onset of Labor Date: 11/08/22 Onset of Labor Time: 05:45 Complete Dilatation Date: 11/09/22 Complete Dilatation Time: 13:32 Labor - Stage 1 Duration: 31 hours and 47 minutes ROM Baby A: 11/09/22 ROM Baby A: 10:17 ROM Total Time- Baby A: [id number] Delivery Date-Baby A: 11/09/22 Infant Delivery Time-Baby A: 14:30 Labor Stage 2 Duration: 58 minutes Placenta Delivery Date-Baby A: 11/09/22 Placenta Delivery Time-Baby A: 14:36 Labor-Stage 3 Duration: 6 minutes Total Length of Labor-Baby A: 32 hours and 45 minutes Placenta Status: Delivered Baby A Gender: Female Gestational Status: Term (39-41.6 wks) Gestational Age in Weeks/Days: 40 Weeks and 1 Days weight: 6 lb 4.354 oz Weight Comment: 2845 gms Score-1 Minute Interval(Baby A) Heart Rate-1 minute: 100 BPM or Greater Respiratory Effort- 1 minute: Spontaneous/Strong Cry Muscle Tone-1 minute: Active Movement Reflex Response-1 minute: Prompt Response Color-1 minute: Pallor or Cyanosis Total Score-1 minute: 8 Score-5 Minute Interval(Baby A) Heart Rate- 5 minute: 100 BPM or Greater Respiratory Effort-5 minute: Spontaneous/Strong Cry Muscle Tone-5 minute: Active Movement Reflex Response-5 minute: Prompt Response Color-5 minute: Bluish Hands or Feet Total Score- 5 minute: 9 Procedure Procedures: Cord Blood Collection Interventions Repair of Laceration
[2022-11-09] MEDS: Acetaminophen 325 MG TAB 650 MG PO ×2 (15:41→23:07)
[2022-11-09] MEDS: Ibuprofen 600 MG TAB PO ×2 (15:42→23:07)
[2022-11-09] MEDS: Hamamelis Leaf/Glycerin 100 EACH BOX PR (15:43)
[2022-11-09] MEDS: Dibucaine 1% 28 GM TUBE TP (15:43)
--- NOTE | 2022-11-09 19:11 | W.ANESPOSTOP ---
Postoperative Evaluation Date, Time and Location Date Performed: 11/09/22 Time Performed: 18:55 Patient Location: Obstetrics Vital Signs Most Recent Imported Vital Signs: Most Recent Vital Signs Temp Pulse Resp BP Pulse Ox 36.7 C 108 H 18 112/65 100 11/09/22 18:33 11/09/22 18:33 11/09/22 18:33 11/09/22 18:33 11/09/22 18:33 Pain Score Most Recent Pain Score: Most Recent Pain Score Pain Level [Abdomen] 8 11/08/22 23:53 Pain Level 8 11/09/22 00:28 Assessment Mental Status: Awake (Alert & Oriented to Patient Baseline) Airway and Respiratory Function: Patent airway with normal (patient baseline) respiratory exam Cardiovascular Function: Hemodynamically Stable Hydration Status: Adequately Hydrated Nausea & Vomiting: No Nausea or Vomiting Pain: Pt. Denies Any Pain Peripheral Nerve Block: Patient did not receive a nerve block
[2022-11-10 08:50] VITALS: BP 106/78; PULSE 78; RESP 16; TEMP 36.6; O2SAT 98
[2022-11-10] MEDS: Ibuprofen 600 MG TAB PO (09:10)
[2022-11-10] MEDS: Acetaminophen 325 MG TAB 650 MG PO (09:10)
[2022-11-10] MEDS: Docusate Sodium 100 MG CAP PO (09:10)
--- NOTE | 2022-11-10 09:35 | OBPPV_ITS ---
Date of service: 11/10/22 Time of Service: 09:35 Assessment and Plan Assessment and plan (1) Term delivered: Status: Acute Assessment and plan: A: PPD#1, nml recovery well Satisfied with experience P: Pt hopes to be discharged this afternoon Her mother and other supports are in place at home Declines hormonal BCM, considering Caya F/up @ 2 & 6 wks Written instructions reviewed and given to pt Subjective Subjective Patient comments: No complaints, Pain well controlled, Tolerating diet and Flatus present Patient's Mood: happy, tired [place] baby status: Doing well, Nursing well, Rooming in and Strong Bonding Observed [place] feeding status: Exclusively breast feeding Exam Physical Exam Vital signs: Temp Pulse Resp BP Pulse Ox 97.9 F 78 16 106/78 98 11/10/22 08:50 11/10/22 08:50 11/10/22 08:50 11/10/22 08:50 11/10/22 08:50 Vital Signs Reviewed: Yes Constitutional Constitutional: no acute distress and cooperative HEENT Exam HEENT Exam: Normal Neck Exam Neck Exam: Normal Breast Exam Bilateral: Breast Exam: Normal and Soft Nipple Exam: Normal and Uninjured Respiratory Exam Respiratory Exam: Normal Cardiovascular Exam Cardiovascular Exam: Normal Abdominal Exam Abdomen: Other (soft and nontender) Fundal Exam Fundus: Below Umbilicus and Firm Rectal Exam Rectal Exam: Normal Extremities Exam Extremity Exam: Normal, Full ROM and Warm to Touch Back/Spine/Pelvis Exam Back Exam: Normal Skin Exam Skin Exam: Normal Neurological Exam Neurological Exam: Normal Psychiatric Exam Psychiatric Exam: Normal
--- NOTE | 2022-11-10 13:32 | W.PM.OBDISCH ---
Date of service: 11/10/22 Time of Service: 13:32 DS: Diagnosis Discharge Diagnosis (1) Term delivered: Status: Acute Discharge Plan Disposition Condition: Good Discharge Details Reason For Visit: Prodromal Labor Admit Date/Time: 11/10/22 12:08 Admit Provider: [place] Attending Provider: [place] Hospital Course Hospital Course: , nml course Home Meds and New Rx's Prescriptions: No Action prenat.vits,chris,[id number] Tablet 1 tab PO DAILY fluticasone propionate [Flonase Allergy Relief] 50 mcg/actuation spray,suspension 1 spray intranasal DAILY Rx Instructions: administer into each nostril acetaminophen 500 mg capsule 500 mg PO Q6H PRN calcium carbonate [Tums] 200 mg calcium (500 mg) tablet,chewable 200 mg PO BID PRN albuterol sulfate 90 mcg/actuation HFA aerosol inhaler 2 puff inhalation QID PRN (DME) Caya Contoured 65-80 mm diaphragm See Rx Instructions .Route Qty: 1 0RF Rx Instructions: As directed Discharge Instructions Additional Instructions: Please keep 2 and 6 wk appointments, call for any question or concern. Stand Alone Forms: BC Instructions, BC Post Vaginal Deliver Activity:: Activity as Tolerated Equipment/Supplies:: No Equipment Needed Diet:: Normal Diet OB:DS Summary Summary Vaginal Delivery Method: Spontaneaous Laceration Extension: First Degree Contraception Discussed Contraception Discussed: Yes Contraceptive Plan: Foam/Condoms and Diaphragm, Gender-Baby A: Female weight: 6 lb 4.354 oz Status at Discharge Functional status at discharge: independent ambulation Overall status at discharge: patient is progressing back to baseline Mental Status: mental status grossly normal Speech and Movement: speech and movement normal and speech clear Mood: congruent mood Affect: normal affect Exam Physical Exam Vital signs: Temp Pulse Resp BP Pulse Ox 97.9 F 78 16 106/78 98 11/10/22 08:50 11/10/22 08:50 11/10/22 08:50 11/10/22 08:50 11/10/22 08:50 Constitutional Constitutional: no acute distress and cooperative HEENT Exam HEENT Exam: Normal Neck Exam Neck Exam: Normal Breast Exam Bilateral: Breast Exam: Normal and Soft Respiratory Exam Respiratory Exam: Normal Cardiovascular Exam Cardiovascular Exam: Normal Abdominal Exam Abdomen: Other (soft and nontender) Fundal Exam Fundus: Below Umbilicus and Firm Rectal Exam Rectal Exam: Normal Extremities Exam Extremity Exam: Normal, Full ROM and Warm to Touch Back/Spine/Pelvis Exam Back Exam: Normal Skin Exam Skin Exam: Normal Neurological Exam Neurological Exam: Normal Psychiatric Exam Psychiatric Exam: Normal PFSH All Active Problems (Updated 11/10/22 @ 09:35 by Pretty Romo) Term delivered (Acute) Marijuana use (Acute) Caffeine dependence (Acute) Nicotine dependence (Acute) Anxiety (Chronic) Medical History (Updated 11/10/22 @ 09:35 by Pretty Romo) Normal labor Prolonged latent phase of labor Threatened miscarriage Social History Smoking/Tobacco Use Status: Former Tobacco Use Smoking risk assessment performed?: Yes Housing: house Do you feel safe at home: Yes Do you feel safe in your relationship?: Yes History History 2 Para 0 Hx # Term Pregnancies 0 Multiple births 0 Hx # Pregnancies 0 Ectopic pregnancies 0 AB induced 1 Hx Number of Living Children 0 AB spontaneous 0 DS: Data Vitals/I&O Vitals and I&O: Vital Signs Temperature 97.9 F 11/10/22 08:50 Temperature Source Oral 11/09/22 23:37 Pulse 78 11/10/22 08:50 Pulse Rhythm Regular 11/10/22 08:50 Respiratory Rate 16 11/10/22 08:50 Respiratory Depth Normal 11/09/22 19:15 Blood Pressure 106/78 11/10/22 08:50 Blood Pressure Mean 87 11/10/22 08:50 Pulse Oximetry 98 11/10/22 08:50 Oxygen Delivery Method Room Air 11/09/22 09:33 Oxygen Flow Rate 0 11/09/22 09:33 Pain Level 3 11/10/22 09:10 Comment Pulled from prior chart, duplicate chart made in error. 11/08/22 23:53 Intake & Output 11/09/22 11/10/22 11/10/22 23:59 11:59 23:59 Intake Total Output Total 600 / 2550 Balance -590 / -2030 Intake: IV Output: Urine 600 / 2550 Other: Urine Color Yellow Pale
[2022-11-10 15:05] VITALS: BP 118/72; PULSE 87; RESP 16; TEMP 36.6; O2SAT 99
== END 2022-11-10 16:45 | disposition home or self-care (01) | DRG 806 ==
PROVIDERS: Admitting Provider Advanced Practice Midwife; Visit Provider Advanced Practice Midwife
DX: O63.0 Prolonged first stage (of labor) (principal); O99.324 Drug use complicating childbirth; Z37.0 Single live birth; Z3A.40 40 weeks gestation of pregnancy; O99.344 Other mental disorders complicating childbirth; F41.9 Anxiety disorder, unspecified; F12.91 Cannabis use, unspecified, in remission; O69.81X0 Labor and delivery complicated by cord around neck, without compression, not applicable or unspecified; O77.0 Labor and delivery complicated by meconium in amniotic fluid; O70.1 Second degree perineal laceration during delivery
CPT/HCPCS: 36415; 76942; 85027; 86850; 86900; 86901; G0378; J2590; J3010

== ENCOUNTER 2023-06-05 17:31 | Outpatient (CLI) | payer MEDICAID, SELFPAY ==
[2023-06-05 14:21] LABS: HCT 41.5 % (36.0-46.0); HGB 14.3 g/dL (11.2-15.7); MCH 32.4 pg (27.0-33.0); MCHC 34.5 % (32.0-36.0); MCV 94 fL (80-95); MPV 10.6 fL (8.0-11.0); Platelet Count 237 10^3/uL (130-400); RBC 4.41 10^6/uL (3.93-5.22); RDW-SD 42.2 fL; WBC 7.25 10^3/uL (4.4-10.8)
[2023-06-05 14:53] LABS: Anion Gap 11.1 mmol/L (3-11); BUN 12 mg/dL (7-18); CO2 25.9 mmol/L (21.0-32.0); CREATININE 0.9 mg/dL (0.55-1.02); Calcium 9.2 mg/dL (8.5-10.1); Chloride 105 mmol/L (98-107); Estimated GFR 87.11 (mL/min/1.73m2); Glucose 95 mg/dL (74-106); Potassium 3.9 mmol/L (3.5-5.1); Sodium 142 mmol/L (136-145); TSH (W/Ref FT4) 0.95 uIU/mL (0.36-3.74)
== END 2023-06-05 17:32 | disposition home or self-care (01) ==
LOC: LBO 17:32
PROVIDERS: PCP Nurse Practitioner Family; Visit Provider Nurse Practitioner Family
DX: F41.8 Other specified anxiety disorders (principal); L98.8 Other specified disorders of the skin and subcutaneous tissue
CPT/HCPCS: 36415; 80048; 85027; 84443

== ENCOUNTER 2023-11-22 10:43 | Outpatient (CLI) | payer MEDICAID, SELFPAY ==
[2023-11-22 10:17] LABS: HCG Quant, Pregnancy 288 mIU/mL (1-3)
== END 2023-11-22 10:44 | disposition home or self-care (01) ==
LOC: LBO 10:44
PROVIDERS: PCP Nurse Practitioner Family; Visit Provider Obstetrics & Gynecology Gynecology
DX: Z32.01 Encounter for pregnancy test, result positive
CPT/HCPCS: 36415; 84702

== ENCOUNTER 2023-11-24 09:58 | Outpatient (CLI) | payer MEDICAID, SELFPAY ==
[2023-11-24 09:38] LABS: HCG Quant, Pregnancy 773 mIU/mL (1-3)
== END 2023-11-24 09:59 | disposition home or self-care (01) ==
LOC: LBO 09:58
PROVIDERS: PCP Nurse Practitioner Family; Visit Provider Obstetrics & Gynecology Gynecology
DX: Z32.01 Encounter for pregnancy test, result positive (principal); N91.2 Amenorrhea, unspecified; N92.6 Irregular menstruation, unspecified
CPT/HCPCS: 36415; 84702

== ENCOUNTER 2024-01-24 02:16 | Outpatient (CLI) | payer MEDICAID, SELFPAY ==
[2024-01-24 12:13] LABS: Abs Immature Grans 0.03 10^3/uL (0.0-0.06); Absolute Basophil Count 0.06 10^3/uL (0.0-0.2); Absolute Eosinophil Count 0.06 10^3/uL (0.0-0.7); Basophils % 0.5 %; Eosinophils % 0.5 %; HCT 37.3 % (36.0-46.0); HGB 13.3 g/dL (11.2-15.7); Immature Grans % 0.2 %; Lymphocytes % 19.3 %; MCH 33.5 pg (27.0-33.0); MCHC 35.7 % (32.0-36.0); MCV 94 fL (80-95); MPV 10.6 fL (8.0-11.0); Monocytes % 3.2 %; Neutrophils % 76.3 %; Platelet Count 237 10^3/uL (130-400); RBC 3.97 10^6/uL (3.93-5.22); RDW 11.9 % (11.7-14.6); WBC 12.46 10^3/uL (4.4-10.8)
[2024-01-24 12:14] LABS: Absolute Neutrophil Count 9.51 10^3/uL (1.2-6.7)
[2024-01-24 13:07] LABS: Panorama Kit Sent via Fed Ex
[2024-01-25 09:14] LABS: Hepatitis B Surface Ag Negative (Negative)
[2024-01-25 09:45] LABS: Hepatitis C Ab w Rflx HCV PCR Negative (Negative)
[2024-01-25 10:02] LABS: HIV-1/2 Ag & Ab Screen Negative (Negative)
[2024-01-25 10:24] LABS: Rubella IgG Ab (UVM) Positive (See Note)
[2024-01-25 11:09] LABS: Varicella IgG Antibody Positive (See Note)
[2024-01-26 22:06] LABS: Syphilis IgG w/Reflex Nonreactive (Nonreactive)
== END 2024-01-24 02:17 | disposition home or self-care (01) ==
LOC: LBO 02:16
PROVIDERS: Advanced Practice Midwife; PCP Nurse Practitioner Family; Visit Provider Advanced Practice Midwife
DX: Z34.91 Encounter for supervision of normal pregnancy, unspecified, first trimester (principal)
CPT/HCPCS: 36415; 86787; 86803; 86850; 86900; 86901; 87340; 87389; 85025; 86762; 86780

== ENCOUNTER 2024-01-24 11:58 | Outpatient (REF) | payer MEDICAID, SELFPAY ==
[2024-01-24 13:55] LABS: *AMPHETAMINES SCREEN URINE Negative (Negative); *BARBITURATES SCREEN URINE Negative (Negative); *BENZODIAZEPINES SCREEN URINE Negative (Negative); Cannabinoids THC Negative (Negative); Cocaine Screen,Urine Negative (Negative); METHADONE URINE SCREEN Negative (Negative); OPIATES URINE SCREEN Negative (Negative)
[2024-01-24 13:58] LABS: Tricyclic Antidepressants Negative (Negative)
[2024-01-24 18:11] LABS: Lab Add On Test DONE
[2024-01-25 11:44] LABS: Fentanyl Scr w/Rfx Confirm Negative ng/mL (<1)
[2024-01-31 11:49] LABS: Buprenorphine Negative ng/mL (Cutoff: 5.0); Norbuprenorphine Negative ng/mL (Cutoff: 2.5)
== END 2024-01-24 11:59 | disposition home or self-care (01) ==
LOC: LBN 11:58
PROVIDERS: PCP Nurse Practitioner Family; Visit Provider Advanced Practice Midwife
DX: Z34.91 Encounter for supervision of normal pregnancy, unspecified, first trimester (principal)
CPT/HCPCS: 80307; 80348; 87086; 87480; 87510; 87660

== ENCOUNTER 2024-02-22 19:03 | Outpatient (REF) | payer MEDICAID, SELFPAY | END 2024-02-22 19:04 | disposition home or self-care (01) | LOC: LBN 19:03 | PROVIDERS: PCP Nurse Practitioner Family; Visit Provider Advanced Practice Midwife | DX: O23.591 Infection of other part of genital tract in pregnancy, first trimester (principal); B96.89 Other specified bacterial agents as the cause of diseases classified elsewhere | CPT/HCPCS: 87480; 87510; 87660 ==

== ENCOUNTER 2024-03-20 02:57 | Outpatient (CLI) | payer MEDICAID, SELFPAY ==
--- NOTE | 2024-03-20 07:30 | DI.US_ITS ---
Exam(s) US OB 2-3 TRIMESTER EXAM: US OB 2-3 TRIMESTER CLINICAL HISTORY: ,Z34.90. TECHNIQUE: Transabdominal obstetrical ultrasound performed. COMPARISON: US US OB JA WEIGHT from 08/19/2022 FINDINGS: Number of fetuses: 1 position: CEPHALIC heart rate: 154 Placental location: There is a grade 1 posterior placenta. The placental tip is 4.8 cm from the inte rnal os. No evidence of previa. Amniotic fluid index: Amount of fluid is within normal limits. ANATOMICAL SURVEY: Within normal limits. BIOMETRIC DATA: BPD: 4.66cm, 20weeks 1day HC: 18.5cm, 20weeks 6days AC: 15.86cm, 21weeks FL: 3.69cm, 21weeks 5days Cisterna magna: 4.9mm Cerebellum: 2.01cm Lateral ventricle: 0.5 cm EFW: 408.98g, 0.88lb, 66% Composite Age: 21weeks TRAN: 07/31/2024 Heart Rate: ANATOMICAL SURVEY: Four-chambered heart: Unremarkable. RVOT: Unremarkable. LVOT: Unremarkable. Left-sided stomach: Unremarkable. urinary bladder: Unremarkable. Bilateral kidneys: Unremarkable. Three-vessel cord: Unremarkable. Cord insertion: Unremarkable. Posterior fossa: Unremarkable. ventricles: Unremarkable. nose/lips: Unremarkable. Palate: Unremarkable. spine: Unremarkable. Two arms and two legs: Unremarkable. IMPRESSION: 1. Single live intrauterine gestation as above. 2. Normal anatomic survey. DATA REPOSITORY:
== END 2024-03-20 03:17 ==
LOC: DI 02:57
PROVIDERS: PCP Nurse Practitioner Family; Visit Provider Advanced Practice Midwife
DX: Z34.92 Encounter for supervision of normal pregnancy, unspecified, second trimester (principal); Z3A.20 20 weeks gestation of pregnancy
CPT/HCPCS: 76805

== ENCOUNTER 2024-03-20 14:23 | Outpatient (CLI) | payer MEDICAID, SELFPAY ==
[2024-03-20 14:43] LABS: HCT 31.8 % (36.0-46.0); HGB 10.7 g/dL (11.2-15.7); MCH 33.6 pg (27.0-33.0); MCHC 33.6 % (32.0-36.0); MCV 100 fL (80-95); MPV 9.9 fL (8.0-11.0); Platelet Count 267 10^3/uL (130-400); RBC 3.18 10^6/uL (3.93-5.22); RDW 13.6 % (11.7-14.6); WBC 10.35 10^3/uL (4.4-10.8)
[2024-03-20 16:33] LABS: TSH (W/Ref FT4) 0.33 uIU/mL (0.36-3.74); Vitamin D 25 Total 27.8 ng/mL (30-100)
[2024-03-20 17:03] LABS: FREE T4 0.63 ng/dL (0.76-1.46)
== END 2024-03-20 14:24 | disposition home or self-care (01) ==
LOC: LBO 14:25
PROVIDERS: PCP Nurse Practitioner Family; Visit Provider Advanced Practice Midwife
DX: Z34.92 Encounter for supervision of normal pregnancy, unspecified, second trimester (principal)
CPT/HCPCS: 36415; 82306; 85027; 84439; 84443

== ENCOUNTER 2024-04-03 03:42 | Emergency (ER) | payer MEDICAID, SELFPAY ==
[2024-04-03] VITALS (26 sets, daily range): BP systolic 83–141; BP diastolic 34–84; PULSE 99–144; RESP 13–24; TEMP 37.1; O2SAT 95–96
[2024-04-03] MEDS: Normal Saline 1,000 ML 1000 ML IV ×2 (04:06→05:35)
[2024-04-03] MEDS: Ondansetron 4 MG/2 ML VIAL IVP (04:06)
[2024-04-03 04:11] LABS: Abs Immature Grans 0.08 10^3/uL (0.0-0.06); Absolute Basophil Count 0.04 10^3/uL (0.0-0.2); Absolute Eosinophil Count 0.09 10^3/uL (0.0-0.7); Absolute Lymphocyte Count 0.64 10^3/uL (1.2-3.4); Absolute Monocyte Count 0.33 10^3/uL (0.1-0.8); Absolute Neutrophil Count 8.63 10^3/uL (1.2-6.7); Basophils % 0.4 %; Eosinophils % 0.9 %; HCT 34.7 % (36.0-46.0); HGB 11.9 g/dL (11.2-15.7); Immature Grans % 0.8 %; Lymphocytes % 6.5 %; MCH 34.2 pg (27.0-33.0); MCHC 34.3 % (32.0-36.0); MCV 100 fL (80-95); MPV 10.1 fL (8.0-11.0); Monocytes % 3.4 %; Platelet Count 191 10^3/uL (130-400); RBC 3.48 10^6/uL (3.93-5.22); RDW 14.1 % (11.7-14.6); RDW-SD 50.9 fL; WBC 9.81 10^3/uL (4.4-10.8)
[2024-04-03 04:26] LABS: ALT 15 U/L (14-59); AST 15 U/L (15-37); Alkaline Phosphatase 87 U/L (46-116); Anion Gap 12.1 mmol/L (3-11); BUN 9 mg/dL (7-18); Bilirubin, Total 0.54 mg/dL (0.2-1.0); CO2 22.9 mmol/L (21.0-32.0); CREATININE 0.8 mg/dL (0.55-1.02); Calcium 8.1 mg/dL (8.5-10.1); Chloride 102 mmol/L (98-107); Estimated GFR 99.71 (mL/min/1.73m2); Glucose 142 mg/dL (74-106); Potassium 3.1 mmol/L (3.5-5.1); Sodium 137 mmol/L (136-145); Total Protein 6.9 g/dL (6.4-8.2)
[2024-04-03 04:36] LABS: Lipase 29 U/L (<78); Magnesium 1.3 mg/dL (1.8-2.4)
--- NOTE | 2024-04-03 04:47 | ED.GENADUL_ITS ---
Discharge Plan Disposition Patient Disposition: Home Condition: Good Discharge Details Clinical Impression: Dehydration, Nausea & vomiting, Acute hypokalemia, Hypomagnesemia, Hypocalcemia Primary Care Provider: Kay Mistry ED Provider: Sean Mejia Home Meds and New Rx's Prescriptions: New ondansetron 4 mg tablet,disintegrating 4 mg PO Q8H Qty: 20 0RF No Action hydroxyzine HCl 25 mg tablet 25 mg PO QHS Qty: 90 1RF diphenhydramine HCl [Benadryl Allergy] 25 mg tablet 25 mg PO QHS PRN Unisom (doxylamine) 25 mg tablet 25 mg PO QHS PRN Vitamin Plus Low Iron 27 mg iron- 1 mg tablet 1 tab PO DAILY Qty: 90 4RF ondansetron HCl 4 mg tablet 4 mg PO Q6H PRN (Reason: nausea and vomiting) Qty: 20 2RF ferrous sulfate 325 mg (65 mg iron) tablet 325 mg PO DAILY Qty: 90 4RF Discharge Instructions Instructions: Hypokalemia, Dehydration, Adult ED, Nausea and vomiting in adults Additional Instructions: At this time your laboratory workup showed evidence of low potassium, magnesium and calcium. These have been replaced. Please stick with a diet high in potassium and electrolytes for the next few days. Take the Zofran as needed for nausea and vomiting. Drink plenty of fluids and stay well-hydrated. If you notice any worsening of your symptoms, or any new symptoms such as vomiting, diarrhea, fever, chills, shortness of breath, chest pain, numbness, weakness, or fainting , please return immediately to the emergency department for reevaluation. Please follow up with your primary care provider as soon as possible for reassessment and reevaluation. As always, it was a pleasure participating in your medical care today. Referrals: Kay Mistry NP [Primary Care Provider] - HPI General Date/Time Provider Initiated Documentation: 04/03/24 03:55 . HPI Narrative: 34-year-old female who is currently 23 weeks , recently had COVID-19 3 weeks ago, presents today for nausea and vomiting. Since 9 AM yesterday morning she has had multiple episodes of vomiting which have been unremitting. She admits to chills but no fever. No blood in her vomit. No diarrhea. No other complaints at this time. She denies any focal abdominal pain but does admit to some mild generalized lower abdominal achiness. Related Data Home Medications ?Medication ?Instructions ?Recorded ?Confirmed hydroxyzine HCl 25 mg tablet 25 mg PO QHS #90 tabs 10/16/23 04/03/24 vitamin with calcium 1 tab PO DAILY #90 tabs 11/24/23 04/03/24 no.72-iron 27 mg-folic acid 1 mg tablet ( Vitamins Plus Low Iron) ondansetron HCl 4 mg tablet 4 mg PO Q6H PRN nausea and 12/25/23 04/03/24 vomiting #20 tabs diphenhydramine HCl 25 mg tablet 25 mg PO QHS PRN 01/24/24 04/03/24 (Benadryl Allergy) doxylamine succinate 25 mg tablet 25 mg PO QHS PRN 02/22/24 04/03/24 (Unisom (doxylamine)) ferrous sulfate 325 mg (65 mg 325 mg PO DAILY #90 tabs 03/21/24 04/03/24 iron) tablet ondansetron 4 mg disintegrating 4 mg PO Q8H #20 tabs 04/03/24 tablet Previous Rx's ?Medication ?Instructions ?Recorded hydroxyzine HCl 25 mg tablet 25 mg PO QHS #90 tabs 10/16/23 vitamin with calcium 1 tab PO DAILY #90 tabs 11/24/23 no.72-iron 27 mg-folic acid 1 mg tablet ( Vitamins Plus Low Iron) ondansetron HCl 4 mg tablet 4 mg PO Q6H PRN nausea and 12/25/23 vomiting #20 tabs ferrous sulfate 325 mg (65 mg 325 mg PO DAILY #90 tabs 03/21/24 iron) tablet ondansetron 4 mg disintegrating 4 mg PO Q8H #20 tabs 04/03/24 tablet Allergies Allergy/AdvReac Type Severity Reaction Status Date / Time Sulfa (Sulfonamide Allergy Skin Rash Verified 04/03/24 03:52 Antibiotics) Penicillins AdvReac Mild Skin Rash Verified 04/03/24 03:52 lavender soap AdvReac Intermediate Hives Uncoded 04/03/24 03:52 General Stated Complaint: Nausea/Vomit/Diar VINNIE: 3 Exam Narrative Exam Narrative: 1.Const: Well-nourished, Well-developed, appearing stated age 2.Eyes: PERRL, no conjunctival injection, and symmetrical lids. 3.ENT: Atraumatic external nose and ears. Notably dry MM. Neck: Symmetric, trachea midline, No thyromegaly. 4.CVS: +S1/S2, Peripheral pulses 2+ and equal in all extremities. Brisk capillary refill in all extremities. 5.RESP: Unlabored respiratory effort. Clear to auscultation bilaterally. No wheezes rales or rhonchi 6.GI: Soft, nondistended, appropriately gravid abdomen, no pain at McBurney's point, negative Quintana sign. No signs of an acute surgical abdomen. 7.MSK: Normocephalic/Atraumatic, Extremities w/o deformity or ttp No cyanosis or clubbing, Normal movement of all extremities 8.Skin: Warm, Dry. No rashes or lesions. 9.Neuro: lpta II-XII grossly intact. Sensation grossly intact, no focal neurologic deficits. 10.Psych: (AAO) x3. Appropriate mood and affect Course Vital Signs Vital signs: Vital Signs Temperature 37.1 C 04/03/24 03:48 Pulse 144 H 04/03/24 03:48 Respiratory Rate 16 04/03/24 03:48 Blood Pressure 141/84 H 04/03/24 03:48 Pulse Oximetry 95 04/03/24 03:48 Temperature 37.1 C 04/03/24 03:52 Temperature Source Temporal Artery Scan 04/03/24 03:52 Pulse 144 H 04/03/24 03:52 Respiratory Rate 16 04/03/24 03:52 Blood Pressure 141/84 H 04/03/24 03:52 Blood Pressure Position Supine 04/03/24 03:52 Pulse Oximetry 95 04/03/24 03:52 Oxygen Delivery Method Room Air 04/03/24 03:52 Oxygen Flow Rate 0 04/03/24 03:48 Pain Level 3 04/03/24 03:52 Lab/Test Results Lab/Test Results: Laboratory Tests Range/Units 04/03/24 04:02 WBC (4.4-10.8) 10^3/uL 9.81 RBC (3.93-5.22) 10^6/uL 3.48 L Hgb (11.2-15.7) g/dL 11.9 Hct (36.0-46.0) % 34.7 L MCV (80-95) fL 100 H MCH (27.0-33.0) pg 34.2 H MCHC (32.0-36.0) % 34.3 RDW (11.7-14.6) % 14.1 Plt Count (130-400) 10^3/uL 191 MPV (8.0-11.0) fL 10.1 Immature Gran % % 0.8 Neutrophils % % 88.0 Lymphocytes % % 6.5 Monocytes % % 3.4 Eosinophils % % 0.9 Basophils % % 0.4 Nucleated RBC % (0.0-0.3) % 0.0 Absolute Neutrophils (1.2-6.7) 10^3/uL 8.63 H Absolute Lymphocytes (1.2-3.4) 10^3/uL 0.64 L Absolute Monocytes (0.1-0.8) 10^3/uL 0.33 Absolute Eosinophils (0.0-0.7) 10^3/uL 0.09 Absolute Basophils (0.0-0.2) 10^3/uL 0.04 Sodium (136-145) mmol/L 137 Potassium (3.5-5.1) mmol/L 3.1 L Chloride (98-107) mmol/L 102 Carbon Dioxide (21.0-32.0) mmol/L 22.9 Anion Gap (3-11) mmol/L 12.1 H BUN (7-18) mg/dL 9 Creatinine (0.55-1.02) mg/dL 0.8 Est GFR (CKD-EPI 2020) (mL/min/1.73m2) 99.71 Glucose (74-106) mg/dL 142 H Calcium (8.5-10.1) mg/dL 8.1 L Magnesium (1.8-2.4) mg/dL 1.3 L Total Bilirubin (0.2-1.0) mg/dL 0.54 AST (15-37) U/L 15 ALT (14-59) U/L 15 Alkaline Phosphatase (46-116) U/L 87 Total Protein (6.4-8.2) g/dL 6.9 Albumin (3.4-5.0) g/dL 3.0 L Lipase (<78) U/L 29 Medical Decision Making 34-year-old female who is currently 23 weeks , recently had COVID-19 3 weeks ago, presents today for nausea and vomiting. Since 9 AM yesterday morning she has had multiple episodes of vomiting which have been unremitting. She admits to chills but no fever. No blood in her vomit. No diarrhea. No other complaints at this time. She denies any focal abdominal pain but does admit to some mild generalized lower abdominal achiness. Exam demonstrates a dehydrated appearing female, dry mucous membranes, heart rate in the 140s, nontender abdomen. No evidence to suggest appendicitis, cholecystitis, or other acute abdominal pathology. Suspect norovirus or COVID or flu. Concern for electrolyte abnormalities is high. Will evaluate for these, rehydrate with a liter of normal saline, monitor closely and reassess. Will give IV antiemetics. 4:50 AM Laboratory workup demonstrates a low potassium at 3.1, anion gap of 12, calcium that is low at 8.1, and magnesium of 1.3, we will give 20 mEq of potassium, 1 amp of calcium, and 2 g of magnesium. Will hydrate with a second liter. Will continue to monitor closely. 7 AM On reassessment patient feels much better, abdominal discomfort has completely resolved, her nausea has resolved. She is tolerated p.o. well. After 2 L of normal saline and electrolyte replacement her heart rate has gone from 1 44-1 06. She feels much better and feels comfortable going home. Will give Zofran to go, and prescription for Zofran. Symptoms appear consistent with nausea and vomiting secondary to viral etiology. No evidence of appendicitis, cholecystitis, or an acute surgical abdomen. Symptoms inconsistent with ovarian torsion or an ectopic . Discussed red flags for which to return. I have extensively reviewed the treatment plan and discharge instructions with the patient. I have addressed all patient concerns at this time. The patient was made aware of what symptoms to monitor for that would warrant a return to the emergency department. Discussed the plan with the patient, they demonstrate verbal understanding and agreement with our assessment and plan at this time. The documentation in this chart was dictated using [employer] dictation software. Please excuse any dictation errors. Quality:SDOH Health Related Social Needs: No Data to Display PFSH All Active Problems (Updated 04/03/24 @ 06:43 by Sean Mejia DO) Hypocalcemia (Acute) Hypomagnesemia (Acute) Acute hypokalemia (Acute) Nausea & vomiting (Acute) Dehydration (Acute) Anemia affecting in second trimester (Acute) start iron supp + Vit C COVID-19 affecting in second trimester (Acute) (Acute) Skin lesions, generalized (Acute) Anxiety (Chronic) Medical History (Updated 04/03/24 @ 06:43 by Sean Mejia DO) History of marijuana use Former tobacco use Complication of epidural infusion catheter Right sided numbness up to face and eyes. Meningitis 13 years old test positive Missed menses Uses diaphragm as primary control method Term delivered Threatened miscarriage Family History Father Diabetes Hyperlipidemia Maternal Grandmother Heart disease Social History Smoking/Tobacco Use Status: Former Tobacco Use tobacco type: cigarettes Quit Date: 02/28/21 Tobacco: How many years used: 11 Second Hand Exposure: No Smoking risk assessment performed?: Yes Alcohol Intake: never Drug use: Occasionally Substance use type: marijuana Adopted: No Caregiver/Support person: No Household members: significant other and children Housing: house Number of Children: 1 Communication Needs: None Education Level: college 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 Do you need help understanding health information?: Rarely 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 Sexually active: Yes Do you think of yourself as: straight/heterosexual Current gender identity: female What is your relationship status?: living with partner How often do you talk on the phone with friends or family?: three or more times per week How often do you get together with friends or relatives?: once per week How often do you attend presybeterian or tenriism services?: decline to answer Do you belong to any clubs or organized social groups?: no Panel score (0-1 are the most socially isolated patients): 2 Seatbelt use: always Helmet use: Yes Helmet use: always Drive intox or ride w/intox driver courier: No Firearms in home: No Do you feel safe at home: Yes Do you feel safe in your relationship?: Yes Victim of physical abuse: No Victim of emotional abuse: No Victim of sexual abuse: No Would you like helpful sources: No History History 3 Para 1 Hx # Term Pregnancies 1 Multiple births 0 Hx # Pregnancies 0 Ectopic pregnancies 0 AB induced 1 Hx Number of Living Children 1 AB spontaneous 0 Past Pregnancies Del. Date GA/Weeks # Preg Succ Route Wgt Sex Labor Lgth Anesth esia Location Prov Complic 11/09/22 40 No Yes vaginal 2844.875 g Female 32hrs 45min DID[facility] Castro Delivery Date: 11/09/22 Last Updated by: Pretty Romo long prodromal phase, high epidural with numbness in right side of face and drooping eyelid so catheter removed, fentanyl IV x1, nml , Diane
[2024-04-03] MEDS: POTASSIUM CHLORIDE 20 MEQ/100 ML BAG 50 MEQ IV_INF (05:02)
[2024-04-03] MEDS: Calcium Gluconate 4.65 MEQ/10 ML VIAL 4.65 MG IVP (05:02)
[2024-04-03 05:07] LABS: Influenza A PCR Negative (Negative); Influenza B PCR Negative (Negative); RSV PCR Negative (Negative)
[2024-04-03 05:12] LABS: COVID-19 PCR Positive (Negative); Source Nasopharynx
[2024-04-03] MEDS: MAGNESIUM SULFATE 2 GM/50 ML BAG IV_INF (05:15)
[2024-04-03] MEDS: Metoclopramide 10 MG/2 ML VIAL IVP (05:15)
[2024-04-03] MEDS: Normal Saline 50 ML 400 ML (05:29)
[2024-04-03] MEDS: Ondansetron O.D.T. 4 MG TABEF, 3 TABS/BTL PO (07:49)
== END 2024-04-03 07:50 | disposition home or self-care (01) ==
PROVIDERS: Emergency Provider Student in an Organized Health Care Education/Training Program; PCP Nurse Practitioner Family
DX: E86.0 Dehydration (principal); R11.2 Nausea with vomiting, unspecified; E87.6 Hypokalemia; E83.42 Hypomagnesemia; E83.51 Hypocalcemia; O99.891 Other specified diseases and conditions complicating pregnancy
CPT/HCPCS: 36415; 80053; 83690; 87426; 87637; 96361; 96365; 96366; 96368; 96375; 99284; 83735; 85025; J0612; J2405; J2765; J3475; J3480

== ENCOUNTER 2024-05-15 02:21 | Outpatient (CLI) | payer MEDICAID, SELFPAY ==
[2024-05-15 11:38] LABS: HCT 34.9 % (36.0-46.0); HGB 11.7 g/dL (11.2-15.7); MCH 34.3 pg (27.0-33.0); MCHC 33.5 % (32.0-36.0); MCV 102 fL (80-95); MPV 9.8 fL (8.0-11.0); Platelet Count 208 10^3/uL (130-400); RBC 3.41 10^6/uL (3.93-5.22); RDW 13.8 % (11.7-14.6); RDW-SD 51.8 fL; WBC 9.04 10^3/uL (4.4-10.8)
[2024-05-15 11:50] LABS: Glucose,1 Hr (Glucola) 95 mg/dL (80-140)
[2024-05-22 17:43] LABS: 25-Hydroxy D Total 54 ng/mL; 25-Hydroxy D2 <4.0 ng/mL; 25-Hydroxy D3 54 ng/mL
== END 2024-05-15 02:22 | disposition home or self-care (01) ==
LOC: LBO 02:21
PROVIDERS: Advanced Practice Midwife; PCP Nurse Practitioner Family; Visit Provider Advanced Practice Midwife
DX: Z34.92 Encounter for supervision of normal pregnancy, unspecified, second trimester (principal); R53.83 Other fatigue
CPT/HCPCS: 36415; 82306; 82950; 85027

== ENCOUNTER 2024-06-09 21:17 | Observation (INO) | payer MEDICAID, SELFPAY ==
[2024-06-09 20:27] VITALS: BP 130/80; PULSE 89; RESP 16; TEMP 36.8; O2SAT 100
[2024-06-09 21:45] VITALS: BP 130/80; PULSE 89; TEMP 36.8
[2024-06-09 21:48] VITALS: BP 130/80; PULSE 89; RESP 16; TEMP 36.8; O2SAT 100
[2024-06-09 21:54] LABS: Bilirubin Negative (Negative); Blood Negative (Negative); Clarity Clear (Clear); Glucose Negative (Negative); Ketones Negative (Negative); Leukocyte Esterase Negative (Negative); Nitrite Negative (Negative); Urobilinogen 0.2 mg/dL (Up to 0.2)
--- NOTE | 2024-06-09 22:04 | W.OBNST ---
Date of service: 06/09/24 Time of Service: 22:09 NST Evaluation Reason for NST Reasons for Nonstress Test: OTHER, SEE COMMENT Reason for NST Other: Cramping, possible rom Gestational Age Gestational Age in Weeks and Days: 32 Weeks and 3Days Test and Monitor Explained Test/Monitor Explained: Test Explained, Monitor Explained and Patient Verbalized Understanding Vital Signs Blood Pressure: 130/80 Pulse: 89 Temperature: 98.2 F NST Information Date on Monitor: 06/09/24 Time on Monitor: 20: Date off Monitor: 06/09/24 Time off Monitor: 21:13 Total Time on Monitor: 48 NST Interventions: PO Hydration NST Evaluation Patient States Movement: Present FHR Baseline: 135 Variability: Moderate 6-25 bpm Accelerations: 15x15 Decelerations: None NST Results: Reactive Note Ultrasound Done: N/A. NST Note Note: Michelle called earlier today and reported that she leaked a small amount of clear liquid after she voided. She wore a pad for the rest of the day and it was dry. This evening she began experiencing uterine tightening. She has a history of radha and bacterial vaginosis infections and she has treated several times in the past. She denies dysuria. reeactive NST. Uterine irritability noted with mild strength contractions. FFN, vaginal pathogen screen and ROM plus sent. UA and ROM plus egative tonight . results of other testing pending. cervix long and closed. vertex ballotable. Reviewed signs of labor and Mihcelle was encouraged to rest and take adequate fluids and call with signs of labor. NST Reviewed and Verified by: Aspen Amezcua
[2024-06-09 22:05] LABS: Fetal Fibronectin Negative (Negative); ROM Plus Negative
[2024-06-09 22:08] VITALS: BP 130/80; PULSE 89; TEMP 36.8
== END 2024-06-09 22:20 | disposition home or self-care (01) ==
LOC: OBS 06-10 10:27
PROVIDERS: Admitting Provider Advanced Practice Midwife; PCP Nurse Practitioner Family; Visit Provider Advanced Practice Midwife
DX: O47.03 False labor before 37 completed weeks of gestation, third trimester (principal); O26.93 Pregnancy related conditions, unspecified, third trimester; Z3A.32 32 weeks gestation of pregnancy
CPT/HCPCS: 59025; 84112; 99211; 81003; 82731; 87480; 87510; 87660; G0378

== ENCOUNTER 2024-06-11 10:56 | Outpatient (REF) | payer MEDICAID, SELFPAY ==
[2024-06-11 11:43] LABS: *AMPHETAMINES SCREEN URINE Negative (Negative); *BARBITURATES SCREEN URINE Negative (Negative); *BENZODIAZEPINES SCREEN URINE Negative (Negative); Cannabinoids THC Negative (Negative); Cocaine Screen,Urine Negative (Negative); METHADONE URINE SCREEN Negative (Negative); OPIATES URINE SCREEN Negative (Negative); Tricyclic Antidepressants Negative (Negative)
[2024-06-13 09:26] LABS: Fentanyl Scr w/Rfx Confirm Negative ng/mL (<1)
[2024-06-18 12:24] LABS: Buprenorphine Negative ng/mL (Cutoff: 5.0); Norbuprenorphine Negative ng/mL (Cutoff: 2.5)
== END 2024-06-11 10:57 | disposition home or self-care (01) ==
LOC: LBN 10:56
PROVIDERS: PCP Nurse Practitioner Family; Visit Provider Advanced Practice Midwife
DX: F12.91 Cannabis use, unspecified, in remission (principal); Z34.90 Encounter for supervision of normal pregnancy, unspecified, unspecified trimester
CPT/HCPCS: 80307; 80348

== ENCOUNTER 2024-07-09 11:16 | Outpatient (REF) | payer MEDICAID, SELFPAY | END 2024-07-09 11:17 | disposition home or self-care (01) | LOC: LBN 11:16 | PROVIDERS: PCP Nurse Practitioner Family; Visit Provider Advanced Practice Midwife | DX: Z34.93 Encounter for supervision of normal pregnancy, unspecified, third trimester (principal) | CPT/HCPCS: 87081 ==

== ENCOUNTER 2024-07-25 10:09 | Outpatient (CLI) | payer MEDICAID, SELFPAY ==
[2024-07-25 11:56] VITALS: BP 131/90; PULSE 107; TEMP 36.6
[2024-07-25 12:01] VITALS: BP 131/90; PULSE 107
[2024-07-25 12:11] VITALS: BP 126/91; PULSE 104
--- NOTE | 2024-07-25 12:58 | W.OBNST ---
Date of service: 07/25/24 Time of Service: 13:00 NST Evaluation Reason for NST Reasons for Nonstress Test: OTHER, SEE COMMENT Reason for NST Other: rule out labor Gestational Age Gestational Age in Weeks and Days: 39 Weeks and 0Days Test and Monitor Explained Test/Monitor Explained: Test Explained, Monitor Explained and Patient Verbalized Understanding Vital Signs Blood Pressure: 131/90 Pulse: 107 Temperature: 97.9 F Urine Results Urine Protein: Negative Urine Ketones: Negative Urine Glucose: Negative Urine Blood: Negative NST Information Date on Monitor: 07/25/24 Time on Monitor: 11:55 Date off Monitor: 07/25/24 Time off Monitor: 12:35 Total Time on Monitor: 40 NST Interventions: PO Hydration Contraction Frequency: 7-9 NST Evaluation Patient States Movement: Present FHR Baseline: 145 Variability: Moderate 6-25 bpm Accelerations: 15x15 Decelerations: None NST Results: Reactive Note Ultrasound Done: N/A. NST Note Note: mild range BP noted, pt denies TRACY or RUQ pain CBC, CMP and urine pr/cr collected Cvx 2/50% posterior, medium consistency, intact, -3 Pt state she will have her partner check her BP later today, desires discharge now I will call her with lab results and to discuss next BP check. NST Reviewed and Verified by: Pretty Romo
[2024-07-25 13:00] VITALS: BP 131/90; PULSE 107; TEMP 36.6
[2024-07-25 13:49] LABS: HCT 38.2 % (36.0-46.0); HGB 12.9 g/dL (11.2-15.7); MCH 33.4 pg (27.0-33.0); MCHC 33.8 % (32.0-36.0); MCV 99 fL (80-95); MPV 11.4 fL (8.0-11.0); Platelet Count 191 10^3/uL (130-400); RBC 3.86 10^6/uL (3.93-5.22); RDW 13.1 % (11.7-14.6); RDW-SD 47.2 fL; WBC 10.93 10^3/uL (4.4-10.8)
[2024-07-25 14:03] LABS: ALT 15 U/L (14-59); AST 16 U/L (15-37); Albumin 2.8 g/dL (3.4-5.0); Alkaline Phosphatase 271 U/L (46-116); Anion Gap 8.1 mmol/L (3-11); BUN 9 mg/dL (7-18); Bilirubin, Total 0.2 mg/dL (0.2-1.0); CO2 22.9 mmol/L (21.0-32.0); CREATININE 0.7 mg/dL (0.55-1.02); Chloride 104 mmol/L (98-107); Estimated GFR 117.04 (mL/min/1.73m2); Glucose 81 mg/dL (74-106); Potassium 3.8 mmol/L (3.5-5.1); Sodium 135 mmol/L (136-145); Total Protein 6.6 g/dL (6.4-8.2)
[2024-07-25 14:10] LABS: COMMENT (LAB VIEW ONLY) 72.29 mg/dL; PROTEIN 18.8 mg/dL; Prot/Crea Ur Ratio 0.26
== END 2024-07-25 12:45 ==
LOC: BCD 10:10 → OBS 11:55
PROVIDERS: PCP Nurse Practitioner Family; Visit Provider Advanced Practice Midwife
DX: O47.1 False labor at or after 37 completed weeks of gestation (principal); Z3A.39 39 weeks gestation of pregnancy
CPT/HCPCS: 36415; 80053; 85027; 59025; 82565; 84156

== ENCOUNTER 2024-07-26 06:11 | Inpatient (IN) | payer MEDICAID, SELFPAY ==
[2024-07-26] VITALS (108 sets, daily range): BP systolic 89–154; BP diastolic 55–96; PULSE 91–137; RESP 17; TEMP 37; O2SAT 97–100; BMI 23.8
--- NOTE | 2024-07-26 06:11 | HPE_ITS ---
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 Barrett consulting (2) Gestational hypertension affecting second : Status: Acute (3) 39 weeks gestation of : Status: Acute OB-HPI Labor/Delivery History of Present Illness Reason for Visit: term labor Chief Complaint: Uterine Contractions (several days of nightly painful contractions, labor check yesterday 2/50%, contractions since 2245 q8 minutes all night, blood tinge to vaginal mucous, feeling scared and exhausted, requests epidural.). TRAN Calculator Estimated Delivery Date Method Current WG Current Estimate 08/01/24 Ultrasound #1 39w 1d Other Estimates 07/27/24 LMP (Uncertain) 39w 6d Comments: Mild range BP noted yesterday, HTN labs done and found to be nml, discharged and plan to return today for BP & lab recheck. Pt denies TRACY or RUQ pain, no lower limb edema History of Present Expected Delivery Route/Plan - CNM FOB/ - Kevon Pan (2nd child together) BG Desires epidural (or intrathecal) and nitrous oxide. Call anesthesia early for epidural (bring u/s) GBS neg Specific Issues/Plan 1. Anxiety and insomnia - Unisom or benadryl 25 mg at HS. Stopped hydroxyzine 1a. Has a prescription for buspirone 5 mg. and ativan PRN. Plan to start Propranolol PP 2. pos. 5-Ps - previous THC use, UDS-neg; 28 wk UDS=negative 3. Anesthesia complication with numbness and drooping of right eyelid after epidural - anesthesia consult done 03/20/24, Call anesthesia early for epidural 4. Hx BV in previous , 01/23 BV & radha, Rx'ed clotrimazole 7 and metrogel vaginal 4a. On 02/22/24 still radha and BV+, retreated 5. cfDNA low risk female, previously CF carrier negative 6. Covid 03/06/24, Paxlovid Rx'ed 7. Anemia 10.7 on 03/20, start iron +vit C, restest 4-6wks 8. If , desires tubal sterilization. Consultation and federal consent form signed 06/04/2024 9. Insomnia - takes unisom most nights for sleep. Assessment: History Reviewed & Current Informed Consent Informed Consent: Regional Anesthesia and Risk,Benefits,Alternatives Discussed Review of Systems Narrative: ROS completed and found to be noncontributory other than HPI PFSH All Active Problems (Updated 07/26/24 @ 06:34 by Pretty Romo) 39 weeks gestation of (Acute) Gestational hypertension affecting second (Acute) Prolonged first stage of labor, antepartum (Acute) Back pain affecting in third trimester (Acute) Bacterial vaginosis in (Acute) Fatigue (Acute) Anemia affecting in second trimester (Acute) start iron supp + Vit C COVID-19 affecting in second trimester (Acute) (Acute) Skin lesions, generalized (Acute) Anxiety (Chronic) Medical History (Updated 07/26/24 @ 06:34 by Pretty Romo) History of marijuana use Former tobacco use Complication of epidural infusion catheter Right sided numbness up to face and eyes. Meningitis 13 years old test positive Missed menses Uses diaphragm as primary control method Term delivered Threatened miscarriage Family History Father Diabetes Hyperlipidemia Maternal Grandmother Heart disease Social History Smoking/Tobacco Use Status: Former Tobacco Use tobacco type: cigarettes Quit Date: 02/28/21 Tobacco: How many years used: 18 Quit status: quit date established Second Hand Exposure: No Smoking risk assessment performed?: Yes Alcohol Intake: never Drug use: Occasionally Substance use type: marijuana Adopted: No Caregiver/Support person: No Household members: significant other and children Housing: house Number of Children: 1 Communication Needs: None Education Level: college 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 Do you need help understanding health information?: Rarely 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 Sexually active: Yes Do you think of yourself as: straight/heterosexual Current gender identity: female What is your relationship status?: living with partner How often do you talk on the phone with friends or family?: three or more times per week How often do you get together with friends or relatives?: once per week How often do you attend yarsanism or scientology services?: decline to answer Do you belong to any clubs or organized social groups?: no Panel score (0-1 are the most socially isolated patients): 2 Seatbelt use: always Helmet use: Yes Helmet use: always Drive intox or ride w/intox owner operator tanker truck driver: No Firearms in home: No Do you feel safe at home: Yes Do you feel safe in your relationship?: Yes Victim of physical abuse: No Victim of emotional abuse: No Victim of sexual abuse: No Would you like helpful sources: No History History 3 Para 1 Hx # Term Pregnancies 1 Multiple births 0 Hx # Pregnancies 0 Ectopic pregnancies 0 AB induced 1 Hx Number of Living Children 1 AB spontaneous 0 Past Pregnancies Del. Date GA/Weeks # Preg Succ Route Wgt Sex Labor Lgth Anesth esia Location Prov [facility] 11/09/22 40 No Yes vaginal 6 lb 4.35 oz Female 32hrs 45min DID[facility] Castro Delivery Date: 11/09/22 Last Updated by: Aspen Amezcua CNM long prodromal phase, high epidural with numbness in right side of face and drooping eyelid so catheter removed, fentanyl IV x1, nml , Diane Nuchal cord x 2. Meds Allergies and Home Medications Allergies Allergy/AdvReac Type Severity Reaction Status Date / Time Sulfa (Sulfonamide Allergy Skin Rash Verified 07/23/24 11:27 Antibiotics) Penicillins AdvReac Mild Skin Rash Verified 07/23/24 11:27 lavender soap AdvReac Intermediate Hives Uncoded 07/23/24 11:27 Home Medications ?Medication ?Instructions ?Recorded ?Confirmed ?Type hydroxyzine HCl 25 mg tablet 25 mg PO QHS #90 tabs 10/16/23 07/26/24 Rx vitamin with calcium 1 tab PO DAILY #90 tabs 11/24/23 07/26/24 Rx no.72-iron 27 mg-folic acid 1 mg tablet ( Vitamins Plus Low Iron) doxylamine succinate 25 mg tablet 25 mg PO QHS PRN 02/22/24 07/26/24 History (Unisom (doxylamine)) ferrous sulfate 325 mg (65 mg 325 mg PO DAILY #90 tabs 03/21/24 07/26/24 Rx iron) tablet buspirone 5 mg tablet 5 mg PO PRN 04/16/24 07/26/24 History lorazepam 0.5 mg tablet (Ativan) 0.5 mg PO DAILY PRN 04/16/24 07/26/24 History famotidine 20 mg tablet 20 mg PO DAILY #30 tabs 06/11/24 07/26/24 Rx docusate sodium 100 mg capsule 100 mg PO BID 07/09/24 07/26/24 History (Colace) metronidazole 500 mg tablet 500 mg PO BID #14 tabs 07/23/24 07/26/24 Rx Exam Physical Exam Vital signs: 148/92, pulse 105, afebrile Vital Signs Reviewed: Yes Narrative: mild range BP noted, pt denies TRACY or RUQ pain Constitutional Constitutional: moderate distress, thin and cooperative Detailed Labor and Delivery Exam Dilation: 4 Effacement (%): 80 station: -3 Cervix position: mid Consistency: medium CORONA Score(Cervical Ripeness Score): 7 Amniotic Membrane Status: Intact Contraction Frequency(min): 1 in 10 minutes Contraction Intensity: Mild/Moderate Fetus A Heart Rate Baseline: 130 Monitor Accelerations: Present Monitor Decelerations: None Variability: Moderate (6-25 BPM) Categories: Category I Est. Weight: 6 lb 9.822 oz Est. Weight: 3000 gms HEENT Exam HEENT Exam: Normal Neck Exam Neck Exam: Normal Chest/Brest/Axilla Exam Chest Exam: Normal Breast Exam Breast Exam: Not Done Respiratory Exam Respiratory Exam: Normal Cardiovascular Exam Cardiovascular Exam: Normal Abdominal Exam Abdominal Exam: Normal (Gravid, nontender) Exam Exam: Normal Extremities Exam Extremities Exam: Normal (neg edema) Back/Spine/Pelvis Exam Back Exam: Normal Pelvis Adequate: Yes (proven to 6'4) Skin Exam Skin Exam: Normal Neurological Exam Neurological Exam: Normal (normoreflexic (patellar, no clonus)) Psychiatric Exam Psychiatric Exam: Normal Results Results Group Beta Strep: Negative Blood Type: O+ Rubella Status: Immune Varicella Immunity: Immune Risk Assessment Risk for Shoulder Dystocia Historical/Initial OB: NEGATIVE FOR: Pelvic Abnormality, Pre- BMI>30, Previous Shoulder Dystocia or Previous Macrosomia 36 Weeks: NEGATIVE FOR: Current Gestational DM, EFW>4500gms or Maternal Weight Gain>40lbs Increased Risk?: No Delivery Plan @ 36wks: Risk for Pre-Eclampsia Date Initiated/Initials: not indicated JK Yes, if one or more: NEGATIVE FOR: Hx Pre-E/Gest HTN, Chronic HTN, Multiple Gestation, Pre-gestational DM, Renal Disease, Systemic Lupus or APA Syndrome Yes, if 2 or more: NEGATIVE FOR: Nulliparity, Age>= 35 yrs, >10yr btwn pregnancies, BMI>30, ethinicty, Mother/Sister w/ Pre-E or Previous IUGR Risk for Post- Hemorrhage Initial: NEGATIVE FOR: Multiple Gestation, Previous PPH, Known Clotting Deficiency, Grand Multiparity or Anticoagulation 36 Weeks: NEGATIVE FOR: Anemia, hgb<10, Low platelets(thrombocytopenia), Gestational HTN or Pre-E, Polyhydraminios or EFW>4500gms At Risk?: No Counseled re: Active Management: Yes Risks Reviewed Risks Reviewed Upon Admission: Yes
--- NOTE | 2024-07-26 06:52 | ANES.PREOP_ITS ---
General Info Date of Service Date Performed: 07/26/24 Height: 5 ft 4 in Weight: 63.049 kg Body Mass Index (BMI): 23.8 Meds Allergies and Home Medications Allergies Allergy/AdvReac Type Severity Reaction Status Date / Time Sulfa (Sulfonamide Allergy Skin Rash Verified 07/23/24 11:27 Antibiotics) Penicillins AdvReac Mild Skin Rash Verified 07/23/24 11:27 lavender soap AdvReac Intermediate Hives Uncoded 07/23/24 11:27 Home Medication ?Medication ?Instructions ?Recorded hydroxyzine HCl 25 mg tablet 25 mg PO QHS #90 tabs 10/16/23 vitamin with calcium 1 tab PO DAILY #90 tabs 11/24/23 no.72-iron 27 mg-folic acid 1 mg tablet ( Vitamins Plus Low Iron) doxylamine succinate 25 mg tablet 25 mg PO QHS PRN 02/22/24 (Unisom (doxylamine)) ferrous sulfate 325 mg (65 mg 325 mg PO DAILY #90 tabs 03/21/24 iron) tablet buspirone 5 mg tablet 5 mg PO PRN 04/16/24 lorazepam 0.5 mg tablet (Ativan) 0.5 mg PO DAILY PRN 04/16/24 famotidine 20 mg tablet 20 mg PO DAILY #30 tabs 06/11/24 docusate sodium 100 mg capsule 100 mg PO BID 07/09/24 (Colace) metronidazole 500 mg tablet 500 mg PO BID #14 tabs 07/23/24 Current Visit Medications: Current Medications Generic Name Dose Route Start Last Admin Trade Name Freq PRN Reason Stop Dose Admin Buspirone HCl 5 mg 07/26/24 07:00 Buspirone 5 Mg Tab PO PRN BRANDON Famotidine 20 mg 07/26/24 07:30 Famotidine 20 Mg [place] PO 0730 BRANDON Fentanyl/Ropivacaine 200 ml 07/26/24 06:30 Fentanyl/Ropivacaine 2 Mcg/Ml And 0.1% 200 Ml Cadd Cassette EP DIRECTED [facility] Ringer's Solution 500 mls @ 500 mls/hr 07/26/24 06:19 IV 07/26/24 07:18 BOLUS ONE IV Miscellaneous Supplies 1 each 07/26/24 06:00 Iv Access IV DIRECTED [facility] Sodium Chloride 0 ml 07/26/24 05:53 Normal Saline Flush 10 Ml Syr IVP PRN PRN Sodium Chloride 0 ml 07/26/24 08:30 Normal Saline Flush 10 Ml Syr IVP BID BRANDON Sodium Chloride 0 ml 07/26/24 05:53 Normal Saline 10 Ml Vial IJ DIRECTED PRN PFSH Active Problems Active Problems: Problem Status Onset Code 39 weeks gestation of Acute Z3A.39 Gestational hypertension affecting second Acute O13.9 Prolonged first stage of labor, antepartum Acute O63.0 Back pain affecting in third trimester Acute O99.891, M54.9 Bacterial vaginosis in Acute O23.599, B96.89 Fatigue Acute R53.83 Anemia affecting in second trimester Acute O99.012 COVID-19 affecting in second trimester Acute O98.512, U07.1 Acute Z34.90 Skin lesions, generalized Acute L98.9 Anxiety Chronic F41.9 Medical History Medical History (Updated 07/26/24 @ 06:34 by Pretty Romo) History of marijuana use Former tobacco use Complication of epidural infusion catheter Right sided numbness up to face and eyes. Meningitis 13 years old test positive Missed menses Uses diaphragm as primary control method Term delivered Threatened miscarriage Tobacco Smoking/Tobacco Use Status: Former Tobacco Use Passive smoking exposure: No Second hand exposure: No Alcohol Alcohol Intake: never Substance Use Substance use: Occasionally Substance use type: marijuana Prental History History 2 3 Para 1 Hx # Term Pregnancies 1 Multiple births 0 Hx # Pregnancies 0 Ectopic pregnancies 0 AB induced 1 Hx Number of Living Children 1 AB spontaneous 0 Past Pregnancies Del. Date GA/Weeks # Preg Succ Route Wgt Sex Labor Lgth Anesth esia Location Prov Complic 11/09/22 40 No Yes vaginal 2844.875 g Female 32hrs 45min DIDIER Castro Delivery Date: 11/09/22 Last Updated by: Aspen Amezcua CNM long prodromal phase, high epidural with numbness in right side of face and drooping eyelid so catheter removed, fentanyl IV x1, nml , Diane Nuchal cord x 2. Vital Signs and Lab Results Vital Signs Most Recent Vital Signs in EMR: Most Recent Vital Signs Pulse BP 105 H 148/92 H 07/26/24 06:23 07/26/24 06:23 Lab Results 07/26/24 06:40 07/26/24 06:40 Blood Type / Crossmatch: 2 No Data to Display Complete Blood Count: 2 White Blood Count 10.93 10^3/uL (4.4-10.8) H 07/25/24 13:30 Red Blood Count 3.86 10^6/uL (3.93-5.22) L 07/25/24 13:30 Hemoglobin 12.9 g/dL (11.2-15.7) 07/25/24 13:30 Hematocrit 38.2 % (36.0-46.0) 07/25/24 13:30 Platelet Count 191 10^3/uL (130-400) 07/25/24 13:30 Complete Metabolic Panel: 2 Sodium 135 mmol/L (136-145) L 07/25/24 13:30 Potassium 3.8 mmol/L (3.5-5.1) 07/25/24 13:30 Chloride 104 mmol/L (98-107) 07/25/24 13:30 Carbon Dioxide 22.9 mmol/L (21.0-32.0) 07/25/24 13:30 BUN 9 mg/dL (7-18) 07/25/24 13:30 Creatinine 0.7 mg/dL (0.55-1.02) 07/25/24 13:30 Est GFR (CKD-EPI 2020) 117.04 (mL/min/1.73m2) 07/25/24 13:30 Calcium 9.0 mg/dL (8.5-10.1) 07/25/24 13:30 Albumin 2.8 g/dL (3.4-5.0) L 07/25/24 13:30 Glucose 81 mg/dL (74-106) 07/25/24 13:30 Liver Function Panel: 2 Alanine Aminotransferase (ALT/SGPT) 15 U/L (14-59) 07/25/24 13: 30 Aspartate Amino Transf (AST/SGOT) 16 U/L (15-37) 07/25/24 13:30 Coagulation Panel: 2 No Data to Display Cardiac Panel: 2 No Data to Display Arterial Blood Gas: 2 No Data to Display Venous Blood Gas: 2 No Data to Display Pancreas Panel: 2 No Data to Display Thyroid Panel: 2 No Data to Display Infectious Disease: 2 No Data to Display Blood Cultures: 2 No Data to Display Toxicology Panel: 2 No Data to Display Panel: 2 No Data to Display Anesthesia Assessment and Plan Anesthesia History Personal History: No History of Anesthesia Complications Family History: No Family History of Anesthesia Complications Exercise Tolerance Exercise Tolerance: Metabolic Equivalents>4 Cardiac & Pulmonary Exam Cardiac Exam: Normal S1/S2 Heart Sounds Pulmonary Exam: Clear Bilateral Breath Sounds Implantable Cardiac Device Does patient have a Pacemaker or an ICD?: No Airway Exam Known Difficult Airway: No Mallampati Class: 2 Mouth Opening: Normal (> 3cm) Thyromental Distance: Greater than 3 cm Neck Range of Motion: Full ROM Neck Circumference: Normal Teeth Condition: Normal Dentition ASA Classification ASA Score: ASA 2 Emergency Case?: No NPO Status NPO Status: Full Stomach Status Status: Confirmed Anesthesia Plan Resuscitation Status: Full Code Anesthesia Technique: Epidural Anesthesia Airway Planned: Natural Airway Pain Management: Epidural Monitors Used: Standard Monitors Preoperative Comments:: 34 yo at 39+1 requesting labor epidural. Sig PMHx: pHTN (? started yesterday, labs done WNL), GERD, anxiety. former smoker, occ cannabis. Previous Anes: - epidural, multiple attempts with likely subdural placement. Discussed our previous visit reviewing her previous epidural. She understands that while it is unlikely that a subdural placement can still happen. She did also request that if we can't do the epidural that we perform and intrathecal, which she understands does not last as long as an epidural and that we can try dexmedetomidine to potentially increase the duration. Will wait for plt to come back prior to placement.
[2024-07-26 06:53] LABS: HCT 40.4 % (36.0-46.0); HGB 13.5 g/dL (11.2-15.7); MCH 32.9 pg (27.0-33.0); MCHC 33.4 % (32.0-36.0); MCV 99 fL (80-95); MPV 11.1 fL (8.0-11.0); Platelet Count 199 10^3/uL (130-400); RDW 12.9 % (11.7-14.6); RDW-SD 46.2 fL; WBC 13.04 10^3/uL (4.4-10.8)
[2024-07-26] MEDS: Lactated Ringers 250 ML 500 ML IV (07:00)
[2024-07-26 07:12] LABS: ALT 15 U/L (14-59); AST 18 U/L (15-37); Albumin 2.8 g/dL (3.4-5.0); Alkaline Phosphatase 294 U/L (46-116); Anion Gap 13.9 mmol/L (3-11); BUN 9 mg/dL (7-18); Bilirubin, Total 0.2 mg/dL (0.2-1.0); CO2 20.1 mmol/L (21.0-32.0); CREATININE 0.7 mg/dL (0.55-1.02); Calcium 9.3 mg/dL (8.5-10.1); Chloride 106 mmol/L (98-107); Estimated GFR 117.04 (mL/min/1.73m2); Glucose 107 mg/dL (74-106); Potassium 3.7 mmol/L (3.5-5.1); Sodium 140 mmol/L (136-145); Total Protein 6.7 g/dL (6.4-8.2)
[2024-07-26 07:23] LABS: COMMENT (LAB VIEW ONLY) 23.24 mg/dL; PROTEIN 6.6 mg/dL; Prot/Crea Ur Ratio 0.28
--- NOTE | 2024-07-26 07:45 | W.ANESNEU ---
Epidural/Spinal Catheter Date Performed: 07/26/24 Procedure Start: 07:16 Procedure Stop: 07:22 Requesting Provider: Pretty Romo Procedure Location: Obstetrics Reason Performed: Labor Epidural Standard Monitors Applied: Blood Pressure, SpO2 and See EMR for corresponding vital signs Patient Position: Sitting Sedation Given (Indicate Dose Given): No Sedation given Patient Mental Status: Awake Sterility: Hand Hygiene, Surgical Cap, Surgical Mask, Sterile Gloves, Sterile Drape/Sheet and Chlorhexidine Procedure Location: L3-L4 Interspace Epidural Needle: Tuohy 17 Guage Needle Length: 3.5 Inch Needle Approach: Midline Epidural Procedure: Skin Prepped and SARAH to Saline Used Catheter Placed?: Catheter Placed (wire reinforced) Test Dose (Indicate Dose Given): 5ml 1.5% Lidocaine with 1:200K Epinephrine Given (3 mL + 2 mL) Loss of Resistance Depth (cm): 5 Catheter depth at skin (cm): 9 Dressing: [place] Dressing Placed, Mastisol Used and Dressing reinforced with Tape Epidural Provider Bolus (Indicate Dose Given): None Given and Total Ropivacaine 0.1% with Fentanyl 2mcg/ml Given from pump. (ml) (@ 0815) Dose:: 5 mL Additives (Indicate Dose Given ): None Infusion Medication: Medication Infusion Began Medication Infusion: Ropivacaine 0.1% with Fentanyl 2mcg/ml Maintenance Infusion Rate (ml/hour): 10 PCEA Bolus Dose (ml): 5 Block Level: N/A Paresthesia: None Ultrasound: Used to oli site Number of Attempts (See previous attempts in note section): 1 Procedure Tolerated: No Complications Procedure Outcome: Successful Procedure Comment:: Pt tolerated well. Weak but clear SARAH. More water injected which went easily. Catheter placed without difficulty. Test dose performed (3 mL + 2 mL) which was negative. Discussed that we will just start the infusion without a bolus and if she is tolerating the infusion without signs of subdural catheter placement will consider loading at that point. 0815: right leg more numb than left, currently laying on her right. Discussed gravity and its effects on epidural fluid. BPs have been good, no signs of subdural catheter. 5 mL loaded off of the pump. Performed By: Reuben Cramer
[2024-07-26] MEDS: Normal Saline Flush 10 ML SYR IVP (09:21)
[2024-07-26] MEDS: FentaNYL/ROPIvacaine 2 mcg/ml and 0.1% 200 ML CADD Cassette EP (09:21)
[2024-07-26] MEDS: Lactated Ringers 500 ML 125 ML IV (09:23)
--- NOTE | 2024-07-26 09:48 | PGE_ITS ---
Date of service: 07/26/24 Time of Service: 09:48 Informed Consent Informed Consent: Regional Anesthesia and Risk,Benefits,Alternatives Discussed Pelvic Exam Dilation: 5 Effacement (%): 90 station: -2 Cervix Position: mid Consistency: soft Contractions Monitor Mode: External Contraction Frequency(min): q3-4 Intensity: Moderate Fetus A Monitor: External (US) Heart Rate Baseline: 130 Variability: Moderate (6-25 BPM) Categories: Category I Accelerations: Present Decelerations: None Amniotic Membrane Status: Intact Assessment and Plan Assessment and plan (1) Prolonged first stage of labor, antepartum: Status: Acute Assessment and plan: A: Epidural anesthesia in place, effectiveness currently questionable Progress to 5/90%, vtx -2, cat 1 tracing BP's are stable, admit labs nml P: ROUNDING MACHINE OPERATOR notified to revisit anesthesia effectiveness Plan AROM when pt more comfortable Pt hopes to avoid pitocin augmentation Anticipate Subjective Interval history since last seen: Epidural was placed and pt experienced relief, is also using nitrous. Now, however pt reports feeling and discomfort has returned, pt requests ROUNDING MACHINE OPERATOR consult.
--- NOTE | 2024-07-26 11:07 | W.ANESNEU ---
Anesthesia Note Report Anesthesia Note: ~ 0950: Asked to evaluate due to inadequate epidural analgesia. Discussed possibilities as to why and the next steps. She states that she had clear numbness with weakness after the initial bolus/test dose, but this has subsided, however it was slightly one-sided. 10 mL bolus performed off of the pump which she tolerated well. After roughly 15-20 minutes she was reassessed with unequivocal loss of sensation to cold. Did feel that it was minimal on her left, but could definitely feel it on her abdomen. She was very uncomfortable during her contractions. We chatted about the next options: resite vs more medication. Since her epidural was seemingly working previously, and with her previous mulit-attempt placement and subsequent subdural catheter placement we elected to give more medication. We discuses that dosing with lidocaine to confirm catheter placement would give her great analgesia, but it would not last that long. ~ 1040: After confirming no aspiration of CSF from the epidural catheter with a 3 mL syringe she was bolused with 8 mL (4 mL + 4 mL) of lidocaine 1 % with 5 mcg/mL epinephrine. Her epidural pump rate and bolus amout where also increased. After the lidocaine her contractions became more tolerable near immediately, however she did have a MAP drop for which an IVF bolus was given along with ephedrine 7.5 mg IV. She also vomited in this time. The IVF and ephedrine where effecting in increasing her MAP.
--- NOTE | 2024-07-26 12:35 | W.PM.OBNL1 ---
Date of service: 07/26/24 Time of Service: 12:35 Informed Consent Informed Consent: Risk,Benefits,Alternatives Discussed and Other (AROM) Pelvic Exam Dilation: 6 Effacement (%): 100 station: -1 Cervix Position: mid Consistency: soft Contractions Monitor Mode: External Contraction Frequency(min): q3 Intensity: Moderate/Strong Fetus A Monitor: External (US) Heart Rate Baseline: 135 Variability: Moderate (6-25 BPM) Categories: Category I Accelerations: Present Decelerations: None Amniotic Membrane Status: Ruptured Rupture Method: Artifical Amniotic Fluid: Clear Amount: moderate Date of Membrane Rupture: 07/26/24 Time of Membrane Rupture: 12:25 Assessment and Plan Assessment and plan (1) Prolonged first stage of labor, antepartum: Status: Acute Assessment and plan: A: Active labor, effective epidural, BP's are stable Category 1 tracing P: AROM for clear fluid, Anticipate Objective Vital Signs Reviewed: Yes Subjective Interval history since last seen: FIELD PLACEMENT DIRECTOR was able to improve pain relief from epidural and pt is more comfortable now, using nitrous during contractions.
[2024-07-26] MEDS: Ondansetron 4 MG/2 ML VIAL IVP (12:47)
--- NOTE | 2024-07-26 14:05 | OBVDS_ITS ---
Date of service: 07/26/24 Time of Service: 14:06 OB Labor/ Delivery Information Baby A Delivery Delivery Method: Spontaneaous Presentation: Cephalic Cephalic Position: Vertex Vertex Position: Left Occipital Anterior Cord Description-Baby A: 3 Vessels and Other (nuchal hand) Amniotic Fluid: Clear Estimated Blood Loss: 150 Delivery Outcome: Liveborn Transferred: Remains with Mother Note: After AROM pt progressed steadily to full dilation under epidural and using nitrous, maternal BP remained stable/nml and tracing category 1. 2nd stage huddle was completed and excellent maternal efforts resulted in over attempted intact perineum of a vigorous female infant, right nuchal hand noted at left cheek and reduced, then shoulders delivered easily at which point pt reached to grasp and delivered torso, bringing baby to chest immediately for drying and stimulation. pitocin infusion begun, cord ceased pulsating and was clamped then cut by FOB, cord blood collected, Kumar placenta delivered intact with 3VC, fundal massage firm below umbilicus and lochia was minimal. 1st degree laceration repaired using topical benzocaine anesthetic with 3.0 Vicryl. Strong family bonding observed, apgars 9/9, weight 2890 gms. Providers Nurse Inclinometer Tester: Pretty Romo Regional Sales Executive: Reuben Cramer Nurse: Meghana Unger Nurse: Adria Jerome Labor/Delivery Information Number of Babies in Womb: 1 Steroids Given: None Reason Steroids Not Administered: N/A Group Beta Strep: Negative Antibiotics Administered: No Rubella Status: Immune Blood Type: O+ Varicella Immunity: Immune Shoulder Dystocia: No Stages of Labor Onset of Labor Date: 07/25/24 Onset of Labor Time: 20:00 Complete Dilatation Date: 07/26/24 Complete Dilatation Time: 13:34 Labor - Stage 1 Duration: 17 hours and 34 minutes ROM Baby A: 07/26/24 ROM Baby A: 12:25 ROM Total Time- Baby A: [id number] Delivery Date-Baby A: 07/26/24 Delivery Time-Baby A: 13:40 Labor Stage 2 Duration: 6 minutes Placenta Delivery Date-Baby A: 07/26/24 Placenta Delivery Time-Baby A: 13:47 Labor-Stage 3 Duration: 7 minutes Total Length of Labor-Baby A: 17 hours and 40 minutes Placenta Status: Delivered Baby A Gender: Female Gestational Status: Term (39-41.6 wks) Gestational Age in Weeks/Days: 39 Weeks and 1 Days weight: 6 lb 5.942 oz Weight Comment: 2890 gms Length-Baby A: 19 in Score-1 Minute Interval(Baby A) Heart Rate-1 minute: 100 BPM or Greater Respiratory Effort- 1 minute: Spontaneous/Strong Cry Muscle Tone-1 minute: Active Movement Reflex Response-1 minute: Prompt Response Color-1 minute: Bluish Hands or Feet Total Score-1 minute: 9 Score-5 Minute Interval(Baby A) Heart Rate- 5 minute: 100 BPM or Greater Respiratory Effort-5 minute: Spontaneous/Strong Cry Muscle Tone-5 minute: Active Movement Reflex Response-5 minute: Prompt Response Color-5 minute: Bluish Hands or Feet Total Score- 5 minute: 9
--- NOTE | 2024-07-26 15:28 | W.ANESPOSTOP ---
Postoperative Evaluation Date, Time and Location Date Performed: 07/26/24 Time Performed: 15:28 Patient Location: Obstetrics Vital Signs Most Recent Imported Vital Signs: Most Recent Vital Signs Temp Pulse Resp BP Pulse Ox 37.0 C 92 H 17 128/83 100 07/26/24 12:29 07/26/24 15:18 07/26/24 07:24 07/26/24 15:18 07/26/24 11:01 Pain Score Most Recent Pain Score: Most Recent Pain Score Pain Level 8 07/26/24 07:24 Assessment Mental Status: Awake (Alert & Oriented to Patient Baseline) Airway and Respiratory Function: Patent airway with normal (patient baseline) respiratory exam Cardiovascular Function: Hemodynamically Stable Hydration Status: Adequately Hydrated Nausea & Vomiting: No Nausea or Vomiting Pain: Pain is tolerable per patient Peripheral Nerve Block: Patient did not receive a nerve block Postoperative Comments:: Epidural catheter removed, tip intact.
[2024-07-26] MEDS: Acetaminophen 325 MG TAB 650 MG PO (15:54)
[2024-07-26] MEDS: Hamamelis Leaf/Glycerin 100 EACH BOX PR (15:56)
[2024-07-27 00:59] VITALS: BP 118/91; PULSE 91; RESP 17; TEMP 36.9; O2SAT 99
[2024-07-27] MEDS: Ibuprofen 600 MG TAB PO ×4 (01:01→19:58)
[2024-07-27] MEDS: Acetaminophen 325 MG TAB 650 MG PO ×4 (01:01→19:58)
[2024-07-27 07:30] VITALS: BP 123/96; PULSE 99; RESP 16; TEMP 36.7
--- NOTE | 2024-07-27 08:55 | OBPPV_ITS ---
Date of service: 07/27/24 Time of Service: 08:55 Assessment and Plan Assessment and plan (1) Term delivered: Status: Acute Assessment and plan: A: PPD#1 nml recovery, off to a good start P: Routine PP care Pt plans abstinence until vasectomy is done Expect discharge to home tomorrow Subjective Subjective Patient comments: No complaints, Pain well controlled, Tolerating diet and Flatus present Patient's Mood: happy [place] baby status: Doing well, Nursing well, Rooming in and Strong Bonding Observed feeding status: Exclusively breast feeding Exam Physical Exam Vital signs: Temp Pulse Resp BP Pulse Ox 98.1 F 99 H 16 123/96 H 99 07/27/24 07:30 07/27/24 07:30 07/27/24 07:30 07/27/24 07:30 07/27/24 00:59 Vital Signs Reviewed: Yes Constitutional Constitutional: no acute distress, thin and cooperative HEENT Exam HEENT Exam: Normal Neck Exam Neck Exam: Normal Breast Exam Bilateral: Breast Exam: Normal and Soft Nipple Exam: Normal and Uninjured Respiratory Exam Respiratory Exam: Normal Cardiovascular Exam Cardiovascular Exam: Normal Abdominal Exam Abdomen: Other (soft nontender) Fundal Exam Fundus: Below Umbilicus and Firm Rectal Exam Rectal Exam: Normal Exam Perineum: Repair Intact Extremities Exam Extremity Exam: Normal, Full ROM and Warm to Touch Back/Spine/Pelvis Exam Back Exam: Normal Skin Exam Skin Exam: Normal Neurological Exam Neurological Exam: Normal Psychiatric Exam Psychiatric Exam: Normal DetailedPsychiatric Exam Psych Exam: Normal Affect
[2024-07-27 16:30] VITALS: BP 132/87; PULSE 80; RESP 12; TEMP 36.9
[2024-07-27 23:30] VITALS: BP 127/86; PULSE 96; RESP 18; TEMP 36.8; O2SAT 99
[2024-07-28] MEDS: Ibuprofen 600 MG TAB PO ×3 (01:55→14:34)
[2024-07-28] MEDS: Acetaminophen 325 MG TAB 650 MG PO ×3 (01:55→14:35)
[2024-07-28 07:45] VITALS: BP 119/84; PULSE 97; RESP 16; TEMP 36.7
[2024-07-28] MEDS: Famotidine 20 MG TAB PO (07:49)
[2024-07-28] MEDS: Docusate Sodium 100 MG CAP PO (09:16)
--- NOTE | 2024-07-28 09:21 | W.PM.OBPNV1 ---
Date of service: 07/28/24 Time of Service: 09:21 Assessment and Plan Assessment and plan (1) Term delivered: Status: Acute Assessment and plan: A: PPD#2 nml recovery, off to a good start BP's have resolved and are NMl P: Pt plans abstinence until vasectomy is done Discharge to home today Written instructions reviewed and given to pt F/up at 2 & 6 wks. Exam Physical Exam Vital signs: Temp Pulse Resp BP Pulse Ox 98.1 F 97 H 16 119/84 99 07/28/24 07:45 07/28/24 07:45 07/28/24 07:45 07/28/24 07:45 07/27/24 23:30 Vital Signs Reviewed: Yes Constitutional Constitutional: no acute distress, thin and cooperative HEENT Exam HEENT Exam: Normal Neck Exam Neck Exam: Normal Breast Exam Bilateral: Breast Exam: Normal and Soft Respiratory Exam Respiratory Exam: Normal Cardiovascular Exam Cardiovascular Exam: Normal Abdominal Exam Abdomen: Other (soft nontender) Fundal Exam Fundus: Below Umbilicus and Firm Rectal Exam Rectal Exam: Normal Exam Perineum: Repair Intact Extremities Exam Extremity Exam: Normal, Full ROM and Warm to Touch Back/Spine/Pelvis Exam Back Exam: Normal Skin Exam Skin Exam: Normal Neurological Exam Neurological Exam: Normal Psychiatric Exam Psychiatric Exam: Normal Hemorrrhage Note IV Site Right Antecubital: IV Catheter Gauge: 20 Right Wrist: IV Catheter Gauge: 18
--- NOTE | 2024-07-28 09:23 | W.PM.OBDISCH ---
Date of service: 07/28/24 Time of Service: 09:23 DS: Diagnosis Discharge Diagnosis (1) Term delivered: Status: Acute Discharge Plan Disposition Patient Disposition: Home Condition: Good Discharge Details Reason For Visit: term labor Admit Date/Time: 07/26/24 06:12 Admit Provider: Pretty Romo Attending Provider: Pretty Romo [facility] Course: on day of admission, nml course, discharge on PPD#2 Home Meds and New Rx's Prescriptions: No Action hydroxyzine HCl 25 mg tablet 25 mg PO QHS Qty: 90 1RF Unisom (doxylamine) 25 mg tablet 25 mg PO QHS PRN famotidine 20 mg tablet 20 mg PO DAILY Qty: 30 3RF docusate sodium [Colace] 100 mg capsule 100 mg PO BID metronidazole 500 mg tablet 500 mg PO BID Qty: 14 0RF Vitamin Plus Low Iron 27 mg iron- 1 mg tablet 1 tab PO DAILY Qty: 90 4RF ferrous sulfate 325 mg (65 mg iron) tablet 325 mg PO DAILY Qty: 90 4RF buspirone 5 mg tablet 5 mg PO PRN lorazepam [Ativan] 0.5 mg tablet 0.5 mg PO DAILY PRN Discharge Instructions Activity:: Activity as Tolerated Equipment/Supplies:: No Equipment Needed Diet:: Normal Diet OB:DS Summary Summary Vaginal Delivery Method: Spontaneaous Contraception Discussed Contraception Discussed: Yes Contraceptive Plan: Vasectomy, Gender-Baby A: Female weight: 6 lb 5.942 oz Status at Discharge Functional status at discharge: independent ambulation Overall status at discharge: patient is progressing back to baseline Mental Status: mental status grossly normal Speech and Movement: speech and movement normal and speech clear Mood: congruent mood Affect: normal affect Quality:SDOH Health Related Social Needs: No Data to Display Exam Physical Exam Vital signs: Temp Pulse Resp BP Pulse Ox 98.1 F 97 H 16 119/84 99 07/28/24 07:45 07/28/24 07:45 07/28/24 07:45 07/28/24 07:45 07/27/24 23:30 Constitutional Constitutional: no acute distress, thin and cooperative HEENT Exam HEENT Exam: Normal Neck Exam Neck Exam: Normal Breast Exam Bilateral: Breast Exam: Normal and Soft Respiratory Exam Respiratory Exam: Normal Cardiovascular Exam Cardiovascular Exam: Normal Abdominal Exam Abdomen: Other (soft nontender) Fundal Exam Fundus: Below Umbilicus and Firm Rectal Exam Rectal Exam: Normal Exam Perineum: Repair Intact Extremities Exam Extremity Exam: Normal, Full ROM and Warm to Touch Back/Spine/Pelvis Exam Back Exam: Normal Skin Exam Skin Exam: Normal Neurological Exam Neurological Exam: Normal Psychiatric Exam Psychiatric Exam: Normal PFSH All Active Problems (Updated 07/27/24 @ 08:57 by Pretty Romo) Term delivered (Acute) Gestational hypertension affecting second (Acute) Skin lesions, generalized (Acute) Anxiety (Chronic) Medical History (Updated 07/27/24 @ 08:57 by Pretty Romo) COVID-19 affecting in second trimester Anemia affecting in second trimester start iron supp + Vit C Fatigue Bacterial vaginosis in Back pain affecting in third trimester Prolonged first stage of labor, antepartum 39 weeks gestation of History of marijuana use Former tobacco use Complication of epidural infusion catheter Right sided numbness up to face and eyes. Meningitis 13 years old test positive Missed menses Uses diaphragm as primary control method Threatened miscarriage Family History Father Diabetes Hyperlipidemia Maternal Grandmother Heart disease Social History Smoking/Tobacco Use Status: Former Tobacco Use tobacco type: cigarettes Quit Date: 02/28/21 Tobacco: How many years used: 18 Quit status: quit date established Second Hand Exposure: No Smoking risk assessment performed?: Yes Alcohol Intake: never Drug use: Occasionally Substance use type: marijuana Adopted: No Caregiver/Support person: No Household members: significant other and children Housing: house Number of Children: 1 Communication Needs: None Education Level: college 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 Do you need help understanding health information?: Rarely current occupation: [employer] Sexually active: Yes Do you think of yourself as: straight/heterosexual Current gender identity: female What is your relationship status?: living with partner How often do you talk on the phone with friends or family?: three or more times per week How often do you get together with friends or relatives?: once per week How often do you attend christianity or sikh services?: decline to answer Do you belong to any clubs or organized social groups?: no Panel score (0-1 are the most socially isolated patients): 2 Seatbelt use: always Helmet use: Yes Helmet use: always Drive intox or ride w/intox equipment driver: No Firearms in home: No Do you feel safe at home: Yes Do you feel safe in your relationship?: Yes Victim of physical abuse: No Victim of emotional abuse: No Victim of sexual abuse: No Would you like helpful sources: No History History 3 Para 1 Hx # Term Pregnancies 1 Multiple births 0 Hx # Pregnancies 0 Ectopic pregnancies 0 AB induced 1 Hx Number of Living Children 1 AB spontaneous 0 Past Pregnancies Del. Date GA/Weeks # Preg Succ Route Wgt Sex Labor Lgth Anesthesia Location Prov Complic 11/09/22 40 No Yes vaginal 6 lb 4.35 oz Female 32hrs 45min DID[facility] Castro Delivery Date: 11/09/22 Last Updated by: Aspen Amezcua CNM long prodromal phase, high epidural with numbness in right side of face and drooping eyelid so catheter removed, fentanyl IV x1, nml , Diane Nuchal cord x 2. DS: Data Vitals/I&O Vitals and I&O: Vital Signs Temperature 98.1 F 07/28/24 07:45 Temperature Source Tympanic 07/28/24 07:45 Pulse 97 H 07/28/24 07:45 Pulse Rhythm Regular 07/28/24 07:45 Respiratory Rate 16 07/28/24 07:45 Respiratory Depth Normal 07/27/24 19:50 Blood Pressure 119/84 07/28/24 07:45 Blood Pressure Mean 95 07/28/24 07:45 Pulse Oximetry 99 07/27/24 23:30 Oxygen Delivery Method Room Air 07/26/24 06:16 Oxygen Flow Rate 0 07/26/24 06:16 Pain Level 2 07/28/24 07:49
== END 2024-07-28 15:19 | disposition home or self-care (01) | DRG 807 ==
PROVIDERS: Admitting Provider Advanced Practice Midwife; PCP Nurse Practitioner Family; Visit Provider Advanced Practice Midwife
DX: O13.4 Gestational [pregnancy-induced] hypertension without significant proteinuria, complicating childbirth; Z37.0 Single live birth; O63.0 Prolonged first stage (of labor); Z3A.39 39 weeks gestation of pregnancy; O70.0 First degree perineal laceration during delivery; O99.344 Other mental disorders complicating childbirth; F41.9 Anxiety disorder, unspecified; O99.02 Anemia complicating childbirth; D64.9 Anemia, unspecified; G47.00 Insomnia, unspecified; O75.89 Other specified complications of labor and delivery
CPT/HCPCS: 80053; 85027; 86850; 86900; 86901; 82565; 84156; J0665; J2004; J2405

== ENCOUNTER 2024-10-15 08:10 | Outpatient (REF) | payer MEDICAID, SELFPAY ==
--- NOTE | 2024-10-15 07:45 | SKI_PTH ---
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
== END 2024-10-15 08:11 | disposition home or self-care (01) ==
LOC: LBN 08:10
PROVIDERS: PCP Nurse Practitioner Family; Visit Provider Otolaryngology
DX: D22.21 Melanocytic nevi of right ear and external auricular canal (principal); L98.9 Disorder of the skin and subcutaneous tissue, unspecified
CPT/HCPCS: 88305